=== PATIENT | female | born 1935 | race Caucasian/White ===

== ENCOUNTER 2018-03-14 12:04 | Inpatient (IN) ==
--- NOTE | 2018-03-14 12:34 | ED ---
HPI General Chief Complaint: Fall Stated Complaint: Hip Pain Time Seen by Provider: 03/14/18 12:12 Source: patient Mode of arrival: EMS Limitations: no limitations and physical limitation History of Present Illness HPI Narrative: 83-year-old female presents to the emergency department via EMS after she lost her balance and fell. She said she twisted trying to catch herself and was unable to do so. She has history of recent falls. She is complaining of left hip pain. Has not ambulated since after the fall. She denies paresthesias, loss of sensation to the affected extremity. Says she has not moved the extremity and is refusing to do so because of the pain. She denies hitting her head or loss of consciousness. She is on Eliquis for atrial fibrillation. Denies neck pain or back pain. Denies chest pain, shortness of breath, abdominal pain, nausea, vomiting. Denies syncopal episode. Rates pain 6/10. No treatments tried. No known allergies. History of atrial fibrillation , hypertension, diabetes mellitus type 2, hypercholesterolemia. Has no other medical complaints. No other modifying factors or associated signs and symptoms. Related Data Home Medications Medication Instructions Recorded Confirmed apixaban [Eliquis] 2.5 mg PO BID 03/14/18 03/14/18 losartan 50 mg PO BID 03/14/18 03/14/18 metformin 500 mg PO BID 03/14/18 03/14/18 metoprolol tartrate [Lopressor] 25 mg PO BID 03/14/18 03/14/18 propafenone 150 mg PO Q8H 03/14/18 03/14/18 Allergies Allergy/AdvReac Type Severity Reaction Status Date / Time No Known Allergies Allergy Verified 03/14/18 12:21 Review of Systems ROS: all other systems reviewed are negative PMFSH History History Provided By: Patient Social History Social History Substance History: No History of Abuse Smoking Status: Never smoker How Often Do You Have a Drink Containing Alcohol: Never Recent Travel in [facility] within the Last 8 Weeks: No Recent Out of Country Travel within the Last 8 Weeks: No Exam Narrative Exam Narrative: GENERAL: Well-nourished, well-developed elderly, female patient, in no acute distress; afebrile, nontoxic-appearing SKIN: Warm and dry. HEAD: Atraumatic. Normocephalic. EYES: Pupils equal and round. No scleral icterus. No injection or drainage. ENT: Mucosa pink and moist. Airway patent. NECK: Moving freely. No midline tenderness on palpation of the cervical spine. Active rotation greater than 45 to the left and right. Trachea midline. CARDIOVASCULAR: Regular rate and rhythm. No murmur appreciated. RESPIRATORY: No accessory muscle use. Lungs sounds clear and equal bilaterally. GASTROINTESTINAL: Abdomen soft, non-tender, nondistended. Positive bowel sounds. No hepato-splenomegaly, or palpable masses. No guarding. MUSCULOSKELETAL: Left hip with tenderness to palpation to the lateral aspect; without erythema, edema, ecchymosis; unable to assess range of motion secondary patient refusing and guarding; no obvious deformity; no leg length discrepancy noted. Left lower extremity is supple and non-tense with 2+ pedal pulse and sensory intact and without erythema or edema. BACK: No midline point tenderness on palpation of the thoracic or lumbar spine. NEUROLOGICAL: Awake and alert. Oriented 3. No obvious cranial nerve deficits. Motor grossly within normal limits. Normal speech. PSYCHIATRIC: Appropriate mood and affect; insight and judgment normal. Course Initial Documented Vital Signs Temperature 98.7 F 03/14/18 12:16 Pulse Rate 66 03/14/18 12:16 Respiratory Rate 22 03/14/18 12:16 Blood Pressure 186/88 H 03/14/18 12:16 Last Documented Vital Signs Temperature 98.7 F 03/14/18 12:16 Pulse Rate 66 03/14/18 12:16 Respiratory Rate 22 03/14/18 12:16 Blood Pressure 186/88 H 03/14/18 12:16 Medical Decision Making [facility] Narrative Medical decision making narrative: BMP unremarkable.83-year-old female with left hip pain after mechanical fall. She denies hitting her head or loss of consciousness. Denies neck pain or back pain. She is moving her neck freely and she has no tenderness on palpation of the cervical, thoracic, lumbar spine. No obvious neuro deficits. CBC, BMP, left hip with AP pelvis ordered. After the patient pain medication and she declined. 1410: CBC, coags, BMP unremarkable. 1425: Left hip with AP pelvis x-ray concludes: Nondisplaced impacted left femoral neck fracture. Call placed to orthopedic surgeon, Dr. Callejas. Chest x- ray and EKG ordered for preop orders. 1526: I spoke with Dr. Callejas, orthopedic surgeon, and the patient will be admitted for surgery tomorrow. N.p.o. after midnight. I spoke with SUNITHA Rose and report given for patient admission. Urinalysis ordered. Medical Screen Exam Complete: Yes Emergency Medical Condition: Yes Lab Data Result diagrams: 03/14/18 13:00 03/14/18 13:00 Lab Results 03/14/18 03/14/18 03/14/18 Range/Units 13:00 13:00 13:00 WBC 6.6 (4.0-11.0) th/mm3 RBC 4.39 (4.00-5.30) mil/mm3 Hgb 13.3 (11.6-15.3) gm/dL Hct 39.8 (35.0-46.0) % MCV 90.5 (80.0-100.0) fL MCH 30.3 (27.0-34.0) pg MCHC 33.5 (32.0-36.0) % RDW 13.5 (11.6-17.2) % Plt Count 243 (150-450) th/mm3 MPV 8.1 (7.0-11.0) fL Neut % (Auto) 80.8 H (16.0-70.0) % Lymph % (Auto) 9.5 (9.0-44.0) % [place] % (Auto) 8.2 H (0.0-8.0) % Eos % (Auto) 0.9 (0.0-4.0) % Baso % (Auto) 0.6 (0.0-2.0) % Neut # (Auto) 5.3 (1.8-7.7) th/mm3 Lymph # (Auto) 0.6 L (1.0-4.8) th/mm3 [place] # (Auto) 0.5 (0.0-0.9) th/mm3 Eos # (Auto) 0.1 (0.0-0.4) th/mm3 Baso # (Auto) 0.0 (0.0-0.2) th/mm3 WBC Differential . Differential Comment Auto diff final PT 11.1 (9.8-11.6) sec INR 1.1 Ratio APTT (24.3-30.1) sec Sodium 138 (136-145) meq/L Potassium 4.0 (3.5-5.1) meq/L Chloride 100 (98-107) meq/L Carbon Dioxide 29.3 (21.0-32.0) meq/L Anion Gap 9 (5-15) meq/L BUN 16 (7-18) mg/dL Creatinine 0.75 (0.50-1.00) mg/dL Estimated GFR 73 L (>89) mL/min Random Glucose 128 H (74-106) mg/dL Calcium 8.8 (8.5-10.1) mg/dL 03/14/18 Range/Units 13:00 WBC (4.0-11.0) th/mm3 RBC (4.00-5.30) mil/mm3 Hgb (11.6-15.3) gm/dL Hct (35.0-46.0) % MCV (80.0-100.0) fL MCH (27.0-34.0) pg MCHC (32.0-36.0) % RDW (11.6-17.2) % Plt Count (150-450) th/mm3 MPV (7.0-11.0) fL Neut % (Auto) (16.0-70.0) % Lymph % (Auto) (9.0-44.0) % [place] % (Auto) (0.0-8.0) % Eos % (Auto) (0.0-4.0) % Baso % (Auto) (0.0-2.0) % Neut # (Auto) (1.8-7.7) th/mm3 Lymph # (Auto) (1.0-4.8) th/mm3 [place] # (Auto) (0.0-0.9) th/mm3 Eos # (Auto) (0.0-0.4) th/mm3 Baso # (Auto) (0.0-0.2) th/mm3 WBC Differential Differential Comment PT (9.8-11.6) sec INR Ratio APTT 24.8 (24.3-30.1) sec Sodium (136-145) meq/L Potassium (3.5-5.1) meq/L Chloride (98-107) meq/L Carbon Dioxide (21.0-32.0) meq/L Anion Gap (5-15) meq/L BUN (7-18) mg/dL Creatinine (0.50-1.00) mg/dL Estimated GFR (>89) mL/min Random Glucose (74-106) mg/dL Calcium (8.5-10.1) mg/dL Imaging Data Radiologist's impression: Hip X-Ray 03/14/18 12:21 CONCLUSION: 1. Nondisplaced impacted left femoral neck fracture. Chest X-Ray 03/14/18 14:45 CONCLUSION: 1. No acute abnormality or significant interval change. Discharge Plan Discharge Disposition Patient Disposition: 30 Still Patient Discharge Condition Condition: Stable Discharge Details Diagnosis: Fracture of left hip Physicians Team ED Provider: Marcos Ch ED Midlevel Provider: Sophia May Primary Care Provider: Gisella Hernandez Rxs /Orders / Referrals /Forms Prescriptions: No Action losartan 50 mg Tablet 50 mg PO BID RF: 0 metformin 500 mg Tablet 500 mg PO BID RF: 0 propafenone 150 mg Tablet 150 mg PO Q8H RF: 0 metoprolol tartrate [Lopressor] 50 mg Tablet 25 mg PO BID RF: 0 apixaban [Eliquis] 2.5 mg Tablet 2.5 mg PO BID RF: 0 Status ED Status: With Doctor
[2018-03-14 13:27] LABS: Baso % (Auto) 0.6 % (0.0-2.0); Eos # (Auto) 0.1 th/mm3 (0.0-0.4); Eos % (Auto) 0.9 % (0.0-4.0); Hematocrit 39.8 % (35.0-46.0); Hemoglobin 13.3 gm/dL (11.6-15.3); Lymph # (Auto) 0.6 th/mm3 (1.0-4.8); Lymph % (Auto) 9.5 % (9.0-44.0); Mean Corpuscular HGB Conc 33.5 % (32.0-36.0); Mean Corpuscular Hemoglobin 30.3 pg (27.0-34.0); Mean Corpuscular Volume 90.5 fL (80.0-100.0); Mean Platelet Volume 8.1 fL (7.0-11.0); Mono # (Auto) 0.5 th/mm3 (0.0-0.9); Mono % (Auto) 8.2 % (0.0-8.0); Neut # (Auto) 5.3 th/mm3 (1.8-7.7); Neut % (Auto) 80.8 % (16.0-70.0); Platelet Count 243 th/mm3 (150-450); Red Blood Count 4.39 mil/mm3 (4.00-5.30); Red Cell Distribution Width 13.5 % (11.6-17.2); White Blood Count 6.6 th/mm3 (4.0-11.0)
[2018-03-14 13:43] LABS: INR 1.1 Ratio; Prothrombin Time 11.1 sec (9.8-11.6)
[2018-03-14 14:02] LABS: Calcium 8.8 mg/dL (8.5-10.1); Carbon Dioxide 29.3 meq/L (21.0-32.0)
--- NOTE | 2018-03-14 14:20 | XR ---
EXAM DATE: 03/14/2018 12:21 PM EDT AGE/SEX: 83 years / Female INDICATIONS: Left hip pain due to fall. CLINICAL DATA: This is the patient's initial encounter. Patient reports that signs and symptoms have been present for 1 day and indicates a pain score of 8/10. MEDICAL/SURGICAL HISTORY: Diabetes mellitus type II. Chronic obstructive pulmonary disease. H ypertension. . Appendectomy. Hysterectomy.adhesions COMPARISON: [facility], CT ABDOMEN & PELVIS W CONTRAST, 07/23/2015. . FINDINGS: There is an impacted nondisplaced left femoral neck fracture. Remaining osseous structures are intact . Mild to moderate degenerative changes about the joints bilaterally. Soft tissues are unremarkable. CONCLUSION: 1. Nondisplaced impacted left femoral neck fracture. Electronically signed by: Kirk Oliveira MD 03/14/2018 2:19 PM EDT
--- NOTE | 2018-03-14 15:23 | XR ---
EXAM DATE: 03/14/2018 2:45 PM EDT AGE/SEX: 83 years / Female INDICATIONS: Chest pain due to fall. CLINICAL DATA: This is the patient's subsequent encounter. Patient reports that signs and symptoms h ave been present for 1 day and indicates a pain score of 6/10. MEDICAL/SURGICAL HISTORY: Hypertension. Diabetes mellitus type II. . Hysterectomy. Coronary ar og stent. COMPARISON: [facility], XR CHEST PA AND LAT, 10/23/2015. . FINDINGS: Stable minimal left basilar posterior airspace disease, likely scarring. Stable dual lead pacemaker. The cardiomediastinal contours are unremarkable. Osseous structures are intact. CONCLUSION: 1. No acute abnormality or significant interval change. Electronically signed by: Kirk Oliveira MD 03/14/2018 3:22 PM EDT
[2018-03-14] MEDS ORDERED: Naloxone Inj 0.4 MG/ML Vial IV.PUSH PRN (15:29)
[2018-03-14] MEDS ORDERED: Acetaminophen 325 MG Tablet PO PRN ×2 (15:29→15:30)
[2018-03-14] MEDS ORDERED: oxyCODONE/Acetaminophen 10/325 Tablet PO PRN (15:29)
[2018-03-14] MEDS ORDERED: Morphine Sulfate Inj 2 MG/ML Vial IV.PUSH PRN (15:29)
[2018-03-14] MEDS ORDERED: Morphine Inj 4 MG/ML Vial IV.PUSH PRN (15:29)
[2018-03-14] MEDS ORDERED: Bisacodyl 10 MG Supp RECTAL PRN (15:30)
[2018-03-14] MEDS ORDERED: Dextrose 50% in Water 50 ML Vial IV.PUSH PRN (15:34)
[2018-03-14] MEDS: Sod Chloride 0.9% Inj 1,000 ML IV.CONT SCH (15:53)
[2018-03-14] MEDS: Morphine Inj 4 MG/ML Vial IV.PUSH PRN (16:48)
--- NOTE | 2018-03-14 17:06 | P.HPIM ---
History of Present Illness Service: [facility] Primary Care Physician: Gisella Hernandez Chief Complaint: Fall with left hip pain History of Present Illness: Patient is a 83-year-old female presents the emergency department via EMS after she lost her balance and fell. She states she twisted trying to catch herself was unable to catch herself and therefore she fell. She states she has had a lot of recent falls. She has been complaining of left hip pain. Has not ambulated since the fall. She denies any paresthesias, denies any loss of sensation to the affected extremity. She states she is not move the extremity refusing to do so because of pain denies hitting her head or any loss of consciousness she is on Eliquis for chronic atrial fibrillation. She denies any neck pain or back pain. She denies any chest pain or shortness of breath or abdominal pain or nausea or vomiting. Denies any syncopal episodes prior to this. Denies any treatments tried her pain was at least 6 out of 10. Denies any known allergies. Denies any recent infections but states she did have a urinary tract infection about a month ago. Past medical history significant for atrial fibrillation, hypertension, diabetes mellitus, hypercholesterolemia. Denies anything that is helped the pain other than medications. Inpatient Certification: I certify that the inpatient services were ordered in accordance with Medicare regulations governing the order. This includes certification that hospital inpatient services are reasonable and necessary and in the case of services not specified as inpatient-only under 42 CFR 419.22(n), that they are appropriately provided as inpatient services in accordance to with the 2-midnight benchmark under 43 CFR 412.3(e) Estimated Total Length of Stay (Days): 4 Plans for Post Hospital Care: SNF Review of Systems All other systems reviewed negative except as stated in HPI [facility] - History History Provided By: Patient - Medical History Medical History: Medical History (Last Updated 03/14/18 @ 16:58 by Erasmo Rodgers DO) Chronic anticoagulation Pacemaker Presence of permanent cardiac pacemaker Afib Diabetes Hypercholesteremia Hypertension - Family History Family History: Family History (Last Reviewed 03/14/18 @ 16:59 by Erasmo Rodgers DO) Other Family history of hypertension - Social History I have reviewed the patient's Social History: Yes - Tobacco History Second Hand Smoke Exposure: No Tobacco Use In Past 30 Days: No Smoking Status: Never smoker - Alcohol History How Often Do You Have a Drink Containing Alcohol: Never - Substance Use History Substance History: No History of Abuse - Travel History History of Recent Travel: No Recent Travel in the [place] Within the Last 8 Weeks: No Recent Travel Out of the Country Within the Last 8 Weeks: No - Immunization History Tetanus Immunization: Unsure Medications and Allergies Active Medications: Active Medications Acetaminophen (Tylenol) 650 mg PO Q6H PRN PRN Reason: PAIN SCALE 1 TO 2 Acetaminophen (Tylenol) 650 mg PO Q4H PRN PRN Reason: Temp > 100.4 Al Hydroxide/Mg Hydroxide (Milk Of Magnesia Liq) 30 ml PO Q12H PRN PRN Reason: Mild Constipation Bisacodyl (Dulcolax Supp) 10 mg RECTAL DAILY PRN PRN Reason: SEVERE CONSITIPATION Dextrose (D50w Vial) 50 ml IV.PUSH UNSCH PRN PRN Reason: PER HYPOGLYCEMIA PROTOCOL Glucagon (Glucagon Inj) 1 mg OTHER UNSCH PRN PRN Reason: for Hypoglycemia Protocol Sodium Chloride (Ns Inj) 1,000 mls @ 100 mls/hr IV.CONT .Q10H ARIEL Last Admin: 03/14/18 15:53 Dose: 100 mls/hr Insulin Aspart (Novolog Insulin Correctional Sugar Inj) 0 unit SQ ACHS AND 3AM ARIEL; Protocol Lactulose (Lactulose Liq) 30 ml PO DAILY PRN PRN Reason: SEVERE CONSITIPATION Morphine Sulfate (Morphine Inj) 2 mg IV.PUSH Q3H PRN PRN Reason: PAIN 3-5; IF UABLE TO TAKE PO Morphine Sulfate (Morphine Inj) 4 mg IV.PUSH Q3H PRN PRN Reason: PAIN 6-10;IF UNABLE TO TAKE PO Last Admin: 03/14/18 16:48 Dose: 4 mg Morphine Sulfate (Morphine Inj) 4 mg IV.PUSH Q3H PRN PRN Reason: BREAKTHROUGH PAIN Naloxone HCl (Narcan Inj) 0.4 mg IV.PUSH UNSCH PRN PRN Reason: SEE LABEL COMMENTS Ondansetron HCl (Zofran Inj) 4 mg IV.PUSH Q6H PRN PRN Reason: NAUSEA OR VOMITING Last Admin: 03/14/18 16:49 Dose: 4 mg Oxycodone/Acetaminophen (Percocet 10/325 Mg) 1 tab PO Q6H PRN PRN Reason: PAIN SCALE 6 TO 10 Oxycodone/Acetaminophen (Percocet 5/325 Mg) 1 tab PO Q6H PRN PRN Reason: PAIN SCALE 3 TO 5 Senna/Docusate Sodium (Flavia-Colace) 1 tab PO BID ARIEL Sennosides (Senokot) 17.2 mg PO Q12H PRN PRN Reason: Moderate Constipation Allergies Allergy/AdvReac Type Severity Reaction Status Date / Time No Known Allergies Allergy Verified 03/14/18 12:21 Home Medications Medication Instructions Recorded Confirmed Type apixaban [Eliquis] 2.5 mg PO BID 03/14/18 03/14/18 History losartan 50 mg PO BID 03/14/18 03/14/18 History metformin 500 mg PO BID 03/14/18 03/14/18 History metoprolol tartrate [Lopressor] 25 mg PO BID 03/14/18 03/14/18 History propafenone 150 mg PO Q8H 03/14/18 03/14/18 History Exam Vital signs: Vital Signs 03/14/18 12:16 Temperature 98.7 F Pulse Rate 66 Respiratory Rate 22 Blood Pressure 186/88 H Intake & Output 03/13/18 03/14/18 03/14/18 18:59 06:59 18:59 Output Total 300 / 300 Balance -300 / -300 Weight 55.338 kg Output: Urine 300 / 300 Narrative: GENERAL: Awake alert and oriented x3 talkative and cooperative SKIN: Warm and dry. HEAD: Atraumatic. Normocephalic. EYES: Pupils equal and round. No scleral icterus. No injection or drainage. EOMI ENT: No nasal bleeding or discharge. Mucous membranes pink and moist. Tongue is midline NECK: Trachea midline. No JVD. Supple CARDIOVASCULAR: IRRegular rate and rhythm. S1-S2 no S3 or S4 pacemaker in place in the left-sided chest RESPIRATORY: No accessory muscle use. Clear to auscultation. Breath sounds equal bilaterally. GASTROINTESTINAL: Abdomen soft, non-tender, nondistended. Hepatic and splenic margins not palpable. MUSCULOSKELETAL: Extremities without clubbing, cyanosis, or edema. No obvious deformities. Cannot rotate the left leg without pain left leg with hip tenderness to palpation lateral aspect unable to assess range of motion secondary to refusing and guarding left lower extremity supple good pedal pulses good sensory intact no erythema or edema NEUROLOGICAL: Awake and alert. No obvious cranial nerve deficits. Motor grossly within normal limits. Five out of 5 muscle strength in the arms and and right legs. Normal speech. PSYCHIATRIC: Appropriate mood and affect; insight and judgment normal. Results - Labs CBC & Chem 7: 03/14/18 13:00 03/14/18 13:00 Labs: Short CBC 03/14/18 Range/Units 13:00 WBC 6.6 (4.0-11.0) th/mm3 Hgb 13.3 (11.6-15.3) gm/dL Hct 39.8 (35.0-46.0) % Plt Count 243 (150-450) th/mm3 BMP 03/14/18 13:00 Sodium 138 Potassium 4.0 Chloride 100 Carbon Dioxide 29.3 BUN 16 Creatinine 0.75 Calcium 8.8 - Imaging Impressions Hip X-Ray 03/14/18 12:21 CONCLUSION: 1. Nondisplaced impacted left femoral neck fracture. Chest X-Ray 03/14/18 14:45 CONCLUSION: 1. No acute abnormality or significant interval change. Caprini VTE Risk Assessment Caprini VTE Risk Assessment: Moderate/High Risk (score >= 2) Caprini Risk Assessment Model: Point Value = 1 Point Value = 2 Point Value = 3 Point Value = 5 Age 41-60 Minor surgery BMI > 25 kg/m2 Swollen legs Varicose veins or History of unexplained or recurrent spontaneous Oral contraceptives or hormone replacement Sepsis (< 1 month) Serious lung disease, including pneumonia (< 1 month) Abnormal pulmonary function Acute myocardial infarction Congestive heart failure (< 1 month) History of inflammatory bowel disease Medical patient at bed rest Age 61-74 Arthroscopic surgery Major open surgery (> 45 min) Laparoscopic surgery (> 45 min) Malignancy Confined to bed (> 72 hours) Immobilizing plaster cast Central venous access Age >= 75 History of VTE Family history of VTE Factor V Leiden Prothrombin 92800H Lupus anticoagulant Anticardiolipin antibodies Elevated serum homocysteine Heparin-induced thrombocytopenia Other congenital or acquired thrombophilia Stroke (< 1 month) Elective arthroplasty Hip, pelvis, or leg fracture Acute spinal cord injury (< 1 month) Prophylaxis Regimen: Total Risk Factor Score Risk Level Prophylaxis Regimen 0-1 Low Early ambulation 2 Moderate Order ONE of the following: *Sequential Compression Device (SCD) *Heparin 5000 units SQ BID 3-4 Higher Order ONE of the following medications: *Heparin 5000 units SQ TID *Enoxaparin/Lovenox 40 mg SQ daily (WT < 150 kg, CrCl > 30 mL/min) *Enoxaparin/Lovenox 30 mg SQ daily (WT < 150 kg, CrCl > 10-29 mL/min) *Enoxaparin/Lovenox 30 mg SQ BID (WT < 150 kg, CrCl > 30 mL/min) AND/OR *Sequential Compression Device (SCD) 5 or more Highest Order ONE of the following medications: *Heparin 5000 units SQ TID (Preferred with Epidurals) *Enoxaparin/Lovenox 40 mg SQ daily (WT < 150 kg, CrCl > 30 mL/min) *Enoxaparin/Lovenox 30 mg SQ daily (WT < 150 kg, CrCl > 10-29 mL/min) *Enoxaparin/Lovenox 30 mg SQ BID (WT < 150 kg, CrCl > 30 mL/min) AND *Sequential Compression Device (SCD) Assessment and Plan - Plan Status post fall with left hip intertrochanteric fracture--shows nondisplaced impacted left femoral neck fracture -Dr. Callejas will take to surgery tomorrow -N.p.o. after midnight Pain control DVT prophylaxis per [facility] after surgery diabetes mellitus continue on sliding scale coverage with Accu-Cheks before meals and at bedtime Hold off on the metformin Hypertension resume home medications resume the losartan Atrial fibrillation continue on the PROPAFENONE and Lopressor hold Eliquis hold off on the Eliquis due to need for surgery Chronic anticoagulation will hold off on the Eliquis so patient can have surgery Recent urinary tract infection will check a UA with C&S and if positive start on Rocephin Continue on GI prophylaxis with Pepcid DVT prophylaxis per orthopedic surgery a.m. labs N.p.o. after midnight and hopefully to have surgery tomorrow Code Status: Full code Discussed Condition With: RN and patient and emergency room and family Discharge Planning: Pending surgical repair and need for rehab will more than likely need SNF since she lives alone
[2018-03-14 17:11] LABS: Bilirubin,Urine Negative (Negative); Clarity,Urine Hazy (Clear); Color,Urine Yellow (Yellw/Straw); Glucose,Urine (UA) Negative (Negative); Hyaline Casts,Urine 1 /lpf (0-3); Leukocyte Esterase,Urine Negative (Negative); Mucus,Urine Few /lpf (Occasional); Nitrite,Urine Negative (Negative); Specific Gravity,Urine 1.009 (1.002-1.035); Squamous Epithelial Cell,Urine <1 /hpf (0-5)
[2018-03-14] MEDS: Insulin NovoLOG Aspart Correctional Sugar Inj SQ SCH ×2 (18:08→21:48)
[2018-03-14] MEDS: Senna/Docusate Sodium 8.6/50 MG Tablet PO SCH (21:48)
[2018-03-15] MEDS: Morphine Inj 4 MG/ML Vial IV.PUSH PRN (02:18)
[2018-03-15] MEDS: Sod Chloride 0.9% Inj 1,000 ML IV.CONT SCH ×4 (02:19→21:09)
[2018-03-15] MEDS ORDERED: Metoprolol Tartrate 25 MG Tablet PO ONE (03:04)
[2018-03-15] MEDS ORDERED: Chlorhexidine Gluconate 2% 1 Pack (2 Cloths) TOPICAL ONE (03:04)
[2018-03-15] MEDS: Insulin NovoLOG Aspart Correctional Sugar Inj SQ SCH ×5 (03:16→20:32)
[2018-03-15] MEDS ORDERED: Sodium Chlor 0.9% Inj 500 ML IV.SIG SCH (04:00)
[2018-03-15 05:31] LABS: Baso % (Auto) 0.4 % (0.0-2.0); Eos # (Auto) 0.2 th/mm3 (0.0-0.4); Eos % (Auto) 1.7 % (0.0-4.0); Hematocrit 37.6 % (35.0-46.0); Hemoglobin 12.8 gm/dL (11.6-15.3); Lymph # (Auto) 0.7 th/mm3 (1.0-4.8); Lymph % (Auto) 7.3 % (9.0-44.0); Mean Corpuscular HGB Conc 34.1 % (32.0-36.0); Mean Corpuscular Hemoglobin 30.7 pg (27.0-34.0); Mean Corpuscular Volume 89.9 fL (80.0-100.0); Mean Platelet Volume 7.7 fL (7.0-11.0); Mono # (Auto) 0.6 th/mm3 (0.0-0.9); Mono % (Auto) 6.7 % (0.0-8.0); Neut # (Auto) 7.6 th/mm3 (1.8-7.7); Neut % (Auto) 83.9 % (16.0-70.0); Platelet Count 178 th/mm3 (150-450); Red Blood Count 4.18 mil/mm3 (4.00-5.30); Red Cell Distribution Width 13.7 % (11.6-17.2)
[2018-03-15 06:05] LABS: Alanine Aminotransferase 21 U/L (10-53); Alkaline Phosphatase 82 U/L (45-117); Anion Gap 5 meq/L (5-15); Aspartate Aminotransferase 18 U/L (15-37); Blood Urea Nitrogen 11 mg/dL (7-18); Calcium 7.8 mg/dL (8.5-10.1); Carbon Dioxide 29.7 meq/L (21.0-32.0); Chloride 101 meq/L (98-107); Glomerular Filtration Rate 84 mL/min (>89); Glucose,Random 111 mg/dL (74-106); Potassium 3.5 meq/L (3.5-5.1); Sodium 136 meq/L (136-145); Total Protein 6.5 g/dL (6.4-8.2)
--- NOTE | 2018-03-15 06:33 | P.PNOP ---
Subjective Interval history: s/p fall at home last night left hip pain. no other complaints. hx of pace maker and chronic anticoag. take eliquis. last taken yesterday AM at 10am Physical Exam Vital signs: Vital Signs 03/14/18 12:16 03/14/18 15:30 03/14/18 16:00 Temperature 98.7 F 98.7 F Pulse Rate 66 82 72 Respiratory Rate 22 20 20 Blood Pressure 186/88 H 169/87 H 185/81 H Pulse Oximetry 91 L 03/14/18 17:21 03/14/18 20:00 03/15/18 00:00 Temperature 99.2 F 98.4 F Pulse Rate 90 79 76 Respiratory Rate 20 16 16 Blood Pressure 174/78 H 147/71 H 145/71 H Pulse Oximetry 93 L 94 L Intake & Output 03/14/18 03/14/18 03/15/18 06:59 18:59 06:59 Intake Total 1000 / 1000 Output Total 300 / 300 Balance -300 / -300 1000 / 1000 Weight 58.2 kg Intake: IV 1000 / 1000 NS Inj 1,000 ML @ 100 mls/hr IV 1000 / 1000 .CONT .Q10H ARIEL Rx#:[id number] Output: Urine 300 / 300 Other: Date of Last Bowel Movement 03/11/18 03/11/18 Weight On Admission 58.2 kg Narrative: LLE: pain in hip with motion. nvi distally. no pain at knee or ankle. Results - Labs CBC & Chem 7: 03/15/18 04:51 03/15/18 04:51 Laboratory Results - last 24 hr 03/14/18 03/14/18 03/14/18 13:00 13:00 13:00 WBC 6.6 RBC 4.39 Hgb 13.3 Hct 39.8 MCV 90.5 MCH 30.3 MCHC 33.5 RDW 13.5 Plt Count 243 MPV 8.1 Neut % (Auto) 80.8 H Lymph % (Auto) 9.5 [place] % (Auto) 8.2 H Eos % (Auto) 0.9 Baso % (Auto) 0.6 Neut # (Auto) 5.3 Lymph # (Auto) 0.6 L [place] # (Auto) 0.5 Eos # (Auto) 0.1 Baso # (Auto) 0.0 WBC Differential . Differential Comment Auto diff final PT 11.1 INR 1.1 APTT Sodium 138 Potassium 4.0 Chloride 100 Carbon Dioxide 29.3 Anion Gap 9 BUN 16 Creatinine 0.75 Estimated GFR 73 L POC Glucose Random Glucose 128 H Calcium 8.8 Total Bilirubin AST ALT Alkaline Phosphatase Total Protein Albumin Urine Color Urine Clarity Urine pH Ur Specific [place] Urine Protein Urine Glucose (UA) Urine Ketones Urine Occult Blood Urine Nitrate Urine Bilirubin Urine Urobilinogen Ur Leukocyte Esterase Urine RBC Urine WBC Ur Squamous Epith Cells Hyaline Casts Urine Mucus Ur Microscopic Review Blood Type Blood Type Recheck Antibody Screen 03/14/18 03/14/18 03/14/18 13:00 16:35 17:38 WBC RBC Hgb Hct MCV MCH MCHC RDW Plt Count MPV Neut % (Auto) Lymph % (Auto) [place] % (Auto) Eos % (Auto) Baso % (Auto) Neut # (Auto) Lymph # (Auto) [place] # (Auto) Eos # (Auto) Baso # (Auto) WBC Differential Differential Comment PT INR APTT 24.8 Sodium Potassium Chloride Carbon Dioxide Anion Gap BUN Creatinine Estimated GFR POC Glucose 104 Random Glucose Calcium Total Bilirubin AST ALT Alkaline Phosphatase Total Protein Albumin Urine Color Yellow Urine Clarity Hazy H Urine pH 7.0 Ur Specific [place] 1.009 Urine Protein Negative Urine Glucose (UA) Negative Urine Ketones Negative Urine Occult Blood Negative Urine Nitrate Negative Urine Bilirubin Negative Urine Urobilinogen Less than 2 Ur Leukocyte Esterase Negative Urine RBC Less than 1 Urine WBC Less than 1 Ur Squamous Epith Cells <1 Hyaline Casts 1 Urine Mucus Few H Ur Microscopic Review Not Reportable Blood Type Blood Type Recheck Antibody Screen 03/14/18 03/15/18 03/15/18 20:59 02:41 04:51 WBC 9.0 RBC 4.18 Hgb 12.8 Hct 37.6 MCV 89.9 MCH 30.7 MCHC 34.1 RDW 13.7 Plt Count 178 MPV 7.7 Neut % (Auto) 83.9 H Lymph % (Auto) 7.3 L [place] % (Auto) 6.7 Eos % (Auto) 1.7 Baso % (Auto) 0.4 Neut # (Auto) 7.6 Lymph # (Auto) 0.7 L [place] # (Auto) 0.6 Eos # (Auto) 0.2 Baso # (Auto) 0.0 WBC Differential . Differential Comment Auto diff final PT INR APTT Sodium Potassium Chloride Carbon Dioxide Anion Gap BUN Creatinine Estimated GFR POC Glucose 216 H 91 Random Glucose Calcium Total Bilirubin AST ALT Alkaline Phosphatase Total Protein Albumin Urine Color Urine Clarity Urine pH Ur Specific [place] Urine Protein Urine Glucose (UA) Urine Ketones Urine Occult Blood Urine Nitrate Urine Bilirubin Urine Urobilinogen Ur Leukocyte Esterase Urine RBC Urine WBC Ur Squamous Epith Cells Hyaline Casts Urine Mucus Ur Microscopic Review Blood Type Blood Type Recheck Antibody Screen 03/15/18 03/15/18 04:51 04:51 WBC RBC Hgb Hct MCV MCH MCHC RDW Plt Count MPV Neut % (Auto) Lymph % (Auto) [place] % (Auto) Eos % (Auto) Baso % (Auto) Neut # (Auto) Lymph # (Auto) [place] # (Auto) Eos # (Auto) Baso # (Auto) WBC Differential Differential Comment PT INR APTT Sodium 136 Potassium 3.5 Chloride 101 Carbon Dioxide 29.7 Anion Gap 5 BUN 11 Creatinine 0.67 Estimated GFR 84 L POC Glucose Random Glucose 111 H Calcium 7.8 L D Total Bilirubin 0.9 AST 18 ALT 21 Alkaline Phosphatase 82 Total Protein 6.5 Albumin 3.0 L Urine Color Urine Clarity Urine pH Ur Specific [place] Urine Protein Urine Glucose (UA) Urine Ketones Urine Occult Blood Urine Nitrate Urine Bilirubin Urine Urobilinogen Ur Leukocyte Esterase Urine RBC Urine WBC Ur Squamous Epith Cells Hyaline Casts Urine Mucus Ur Microscopic Review Blood Type A Positive Blood Type Recheck Required Antibody Screen Negative - Imaging Impressions Hip X-Ray 03/14/18 12:21 CONCLUSION: 1. Nondisplaced impacted left femoral neck fracture. Chest X-Ray 03/14/18 14:45 CONCLUSION: 1. No acute abnormality or significant interval change. Assessment and Plan - Assessment and Plan 1) Left Femoral Neck Fx -will need left hip hemiarthroplasty -unfortunately, need to wait on surgery as patient takes eliquis. unsafe to proceed this morning. will plan for tomorrow -hold anticoags -regular diet -npo after MN -sign consents -plan for surgery with Donal tomorrow
[2018-03-15] MEDS: Senna/Docusate Sodium 8.6/50 MG Tablet PO SCH ×2 (08:52→20:40)
--- NOTE | 2018-03-15 12:46 | P.PNIM ---
Subjective Interval history: Patient is a 83-year-old female presents the emergency department via EMS after she lost her balance and fell. She states she twisted trying to catch herself was unable to catch herself and therefore she fell. She states she has had a lot of recent falls. She has been complaining of left hip pain. Has not ambulated since the fall. She denies any paresthesias, denies any loss of sensation to the affected extremity. She states she is not move the extremity refusing to do so because of pain denies hitting her head or any loss of consciousness she is on Eliquis for chronic atrial fibrillation. She denies any neck pain or back pain. She denies any chest pain or shortness of breath or abdominal pain or nausea or vomiting. Denies any syncopal episodes prior to this. Denies any treatments tried her pain was at least 6 out of 10. Denies any known allergies. Denies any recent infections but states she did have a urinary tract infection about a month ago. Past medical history significant for atrial fibrillation, hypertension, diabetes mellitus, hypercholesterolemia. Denies anything that is helped the pain other than medications. 03-15 SURGERY ON HOLD UNTIL TOMORROW DUE TO ELIQUIS BEING TAKEN YESTERDAY DW RN AND PT HOPEFULLY FOR SURGERY TOMORROW AM LABS PAIN CONTROL Physical Exam Vital signs: Vital Signs 03/14/18 15:30 03/14/18 16:00 03/14/18 17:21 Temperature 98.7 F Pulse Rate 82 72 90 Respiratory Rate 20 20 20 Blood Pressure 169/87 H 185/81 H 174/78 H Pulse Oximetry 91 L 03/14/18 20:00 03/15/18 00:00 03/15/18 04:00 Temperature 99.2 F 98.4 F 98.6 F Pulse Rate 79 76 77 Respiratory Rate 16 16 19 Blood Pressure 147/71 H 145/71 H 149/70 H Pulse Oximetry 93 L 94 L 92 L 03/15/18 08:00 03/15/18 10:02 Temperature 98.8 F Pulse Rate 75 Respiratory Rate 16 Blood Pressure 160/72 H Pulse Oximetry 92 L 95 Intake & Output 03/14/18 03/15/18 03/15/18 18:59 06:59 18:59 Intake Total 1720 / 1720 1000 / 1000 Output Total 300 / 300 Balance -300 / -300 1720 / 1720 1000 / 1000 Weight 58.2 kg 61.5 kg Intake: IV 1000 / 1000 1000 / 1000 NS Inj 1,000 ML @ 100 mls/hr IV 1000 / 1000 1000 / 1000 .CONT .Q10H ARIEL Rx#:[id number] Oral 720 / 720 Output: Urine 300 / 300 Other: # Voids 2 Date of Last Bowel Movement 03/11/18 03/11/18 03/11/18 Weight On Admission 58.2 kg Narrative: GENERAL: Awake alert and oriented x3 talkative and cooperative SKIN: Warm and dry. HEAD: Atraumatic. Normocephalic. EYES: Pupils equal and round. No scleral icterus. No injection or drainage. EOMI ENT: No nasal bleeding or discharge. Mucous membranes pink and moist. Tongue is midline NECK: Trachea midline. No JVD. Supple CARDIOVASCULAR: IRRegular rate and rhythm. S1-S2 no S3 or S4 pacemaker in place in the left-sided chest RESPIRATORY: No accessory muscle use. Clear to auscultation. Breath sounds equal bilaterally. GASTROINTESTINAL: Abdomen soft, non-tender, nondistended. Hepatic and splenic margins not palpable. MUSCULOSKELETAL: Extremities without clubbing, cyanosis, or edema. No obvious deformities. Cannot rotate the left leg without pain left leg with hip tenderness to palpation lateral aspect unable to assess range of motion secondary to refusing and guarding left lower extremity supple good pedal pulses good sensory intact no erythema or edema NEUROLOGICAL: Awake and alert. No obvious cranial nerve deficits. Motor grossly within normal limits. Five out of 5 muscle strength in the arms and and right legs. Normal speech. PSYCHIATRIC: Appropriate mood and affect; insight and judgment normal. Results - Labs CBC & Chem 7: 03/15/18 04:51 03/15/18 04:51 Laboratory Results - last 24 hr 03/14/18 03/14/18 03/14/18 13:00 13:00 13:00 WBC 6.6 RBC 4.39 Hgb 13.3 Hct 39.8 MCV 90.5 MCH 30.3 MCHC 33.5 RDW 13.5 Plt Count 243 MPV 8.1 Neut % (Auto) 80.8 H Lymph % (Auto) 9.5 [place] % (Auto) 8.2 H Eos % (Auto) 0.9 Baso % (Auto) 0.6 Neut # (Auto) 5.3 Lymph # (Auto) 0.6 L [place] # (Auto) 0.5 Eos # (Auto) 0.1 Baso # (Auto) 0.0 WBC Differential . Differential Comment Auto diff final PT 11.1 INR 1.1 APTT Sodium 138 Potassium 4.0 Chloride 100 Carbon Dioxide 29.3 Anion Gap 9 BUN 16 Creatinine 0.75 Estimated GFR 73 L POC Glucose Random Glucose 128 H Calcium 8.8 Total Bilirubin AST ALT Alkaline Phosphatase Total Protein Albumin Urine Color Urine Clarity Urine pH Ur Specific [place] Urine Protein Urine Glucose (UA) Urine Ketones Urine Occult Blood Urine Nitrate Urine Bilirubin Urine Urobilinogen Ur Leukocyte Esterase Urine RBC Urine WBC Ur Squamous Epith Cells Hyaline Casts Urine Mucus Ur Microscopic Review Blood Type Blood Type Recheck Antibody Screen 03/14/18 03/14/18 03/14/18 13:00 16:35 17:38 WBC RBC Hgb Hct MCV MCH MCHC RDW Plt Count MPV Neut % (Auto) Lymph % (Auto) [place] % (Auto) Eos % (Auto) Baso % (Auto) Neut # (Auto) Lymph # (Auto) [place] # (Auto) Eos # (Auto) Baso # (Auto) WBC Differential Differential Comment PT INR APTT 24.8 Sodium Potassium Chloride Carbon Dioxide Anion Gap BUN Creatinine Estimated GFR POC Glucose 104 Random Glucose Calcium Total Bilirubin AST ALT Alkaline Phosphatase Total Protein Albumin Urine Color Yellow Urine Clarity Hazy H Urine pH 7.0 Ur Specific [place] 1.009 Urine Protein Negative Urine Glucose (UA) Negative Urine Ketones Negative Urine Occult Blood Negative Urine Nitrate Negative Urine Bilirubin Negative Urine Urobilinogen Less than 2 Ur Leukocyte Esterase Negative Urine RBC Less than 1 Urine WBC Less than 1 Ur Squamous Epith Cells <1 Hyaline Casts 1 Urine Mucus Few H Ur Microscopic Review Not Reportable Blood Type Blood Type Recheck Antibody Screen 03/14/18 03/15/18 03/15/18 20:59 02:41 04:51 WBC 9.0 RBC 4.18 Hgb 12.8 Hct 37.6 MCV 89.9 MCH 30.7 MCHC 34.1 RDW 13.7 Plt Count 178 MPV 7.7 Neut % (Auto) 83.9 H Lymph % (Auto) 7.3 L [place] % (Auto) 6.7 Eos % (Auto) 1.7 Baso % (Auto) 0.4 Neut # (Auto) 7.6 Lymph # (Auto) 0.7 L [place] # (Auto) 0.6 Eos # (Auto) 0.2 Baso # (Auto) 0.0 WBC Differential . Differential Comment Auto diff final PT INR APTT Sodium Potassium Chloride Carbon Dioxide Anion Gap BUN Creatinine Estimated GFR POC Glucose 216 H 91 Random Glucose Calcium Total Bilirubin AST ALT Alkaline Phosphatase Total Protein Albumin Urine Color Urine Clarity Urine pH Ur Specific [place] Urine Protein Urine Glucose (UA) Urine Ketones Urine Occult Blood Urine Nitrate Urine Bilirubin Urine Urobilinogen Ur Leukocyte Esterase Urine RBC Urine WBC Ur Squamous Epith Cells Hyaline Casts Urine Mucus Ur Microscopic Review Blood Type Blood Type Recheck Antibody Screen 03/15/18 03/15/18 03/15/18 04:51 04:51 08:56 WBC RBC Hgb Hct MCV MCH MCHC RDW Plt Count MPV Neut % (Auto) Lymph % (Auto) [place] % (Auto) Eos % (Auto) Baso % (Auto) Neut # (Auto) Lymph # (Auto) [place] # (Auto) Eos # (Auto) Baso # (Auto) WBC Differential Differential Comment PT INR APTT Sodium 136 Potassium 3.5 Chloride 101 Carbon Dioxide 29.7 Anion Gap 5 BUN 11 Creatinine 0.67 Estimated GFR 84 L POC Glucose 135 H Random Glucose 111 H Calcium 7.8 L D Total Bilirubin 0.9 AST 18 ALT 21 Alkaline Phosphatase 82 Total Protein 6.5 Albumin 3.0 L Urine Color Urine Clarity Urine pH Ur Specific [place] Urine Protein Urine Glucose (UA) Urine Ketones Urine Occult Blood Urine Nitrate Urine Bilirubin Urine Urobilinogen Ur Leukocyte Esterase Urine RBC Urine WBC Ur Squamous Epith Cells Hyaline Casts Urine Mucus Ur Microscopic Review Blood Type A Positive Blood Type Recheck Required Antibody Screen Negative 03/15/18 11:48 WBC RBC Hgb Hct MCV MCH MCHC RDW Plt Count MPV Neut % (Auto) Lymph % (Auto) [place] % (Auto) Eos % (Auto) Baso % (Auto) Neut # (Auto) Lymph # (Auto) [place] # (Auto) Eos # (Auto) Baso # (Auto) WBC Differential Differential Comment PT INR APTT Sodium Potassium Chloride Carbon Dioxide Anion Gap BUN Creatinine Estimated GFR POC Glucose 155 H Random Glucose Calcium Total Bilirubin AST ALT Alkaline Phosphatase Total Protein Albumin Urine Color Urine Clarity Urine pH Ur Specific [place] Urine Protein Urine Glucose (UA) Urine Ketones Urine Occult Blood Urine Nitrate Urine Bilirubin Urine Urobilinogen Ur Leukocyte Esterase Urine RBC Urine WBC Ur Squamous Epith Cells Hyaline Casts Urine Mucus Ur Microscopic Review Blood Type Blood Type Recheck Antibody Screen - Imaging Impressions Hip X-Ray 03/14/18 12:21 CONCLUSION: 1. Nondisplaced impacted left femoral neck fracture. Chest X-Ray 03/14/18 14:45 CONCLUSION: 1. No acute abnormality or significant interval change. Assessment and Plan - Plan Status post fall with left hip intertrochanteric fracture--shows nondisplaced impacted left femoral neck fracture -Dr. Callejas will take to surgery tomorrow -N.p.o. after midnight Pain control DVT prophylaxis per [facility] after surgery diabetes mellitus continue on sliding scale coverage with Accu-Cheks before meals and at bedtime Hold off on the metformin Hypertension resume home medications resume the losartan Atrial fibrillation continue on the PROPAFENONE and Lopressor hold Eliquis hold off on the Eliquis due to need for surgery Chronic anticoagulation will hold off on the Eliquis so patient can have surgery Recent urinary tract infection will check a UA with C&S and if positive start on Rocephin Continue on GI prophylaxis with Pepcid DVT prophylaxis per orthopedic surgery a.m. labs N.p.o. after midnight and hopefully to have surgery tomorrow Code Status: FULL CODE Discussed Condition With: RN AND PT AND CM Discharge Planning: Pending surgical repair and need for rehab will more than likely need SNF since she lives alone
--- NOTE | 2018-03-15 22:36 | ECG ---
Date Performed: 03/14/2018 Time Performed: 21:22:01 PTAGE: 83 years EKG: Sinus rhythm WITH FIRST DEGREE AV BLOCK RIGHT BUNDLE BRANCH BLOCK LEFT ANTERIOR FASCICULAR BLOCK ABNORMAL ECG PREVIOUS TRACING : 10/04/2015 05.21 Compared to previous tracing, a fib no longer present DOCTOR: Christy Velazquez Interpretating Date/Time 03/15/2018 22:34:28
[2018-03-16] MEDS: Insulin NovoLOG Aspart Correctional Sugar Inj SQ SCH ×5 (02:24→21:13)
[2018-03-16] MEDS ORDERED: Melatonin 5 MG Tablet PO PRN (04:01)
[2018-03-16 04:47] LABS: Baso # (Auto) 0.1 th/mm3 (0.0-0.2); Baso % (Auto) 0.7 % (0.0-2.0); Eos # (Auto) 0.2 th/mm3 (0.0-0.4); Eos % (Auto) 2.7 % (0.0-4.0); Hematocrit 37.2 % (35.0-46.0); Hemoglobin 12.6 gm/dL (11.6-15.3); Lymph # (Auto) 0.5 th/mm3 (1.0-4.8); Lymph % (Auto) 6.3 % (9.0-44.0); Mean Corpuscular HGB Conc 33.7 % (32.0-36.0); Mean Corpuscular Hemoglobin 30.7 pg (27.0-34.0); Mean Corpuscular Volume 91.1 fL (80.0-100.0); Mean Platelet Volume 7.8 fL (7.0-11.0); Mono # (Auto) 0.7 th/mm3 (0.0-0.9); Neut % (Auto) 82.3 % (16.0-70.0); Platelet Count 162 th/mm3 (150-450); Red Blood Count 4.09 mil/mm3 (4.00-5.30); Red Cell Distribution Width 13.6 % (11.6-17.2); White Blood Count 8.5 th/mm3 (4.0-11.0)
[2018-03-16 05:15] LABS: Albumin 2.6 g/dL (3.4-5.0); Anion Gap 10 meq/L (5-15); Aspartate Aminotransferase 18 U/L (15-37); Blood Urea Nitrogen 7 mg/dL (7-18); Calcium 7.7 mg/dL (8.5-10.1); Carbon Dioxide 25.5 meq/L (21.0-32.0); Chloride 102 meq/L (98-107); Glomerular Filtration Rate Greater Than 89 mL/min (>89); Glucose,Random 111 mg/dL (74-106); Magnesium 1.5 mg/dL (1.5-2.5); Sodium 137 meq/L (136-145)
[2018-03-16 05:16] LABS: Alanine Aminotransferase 15 U/L (10-53); Phosphorus 2.2 mg/dL (2.5-4.9)
[2018-03-16 05:18] LABS: Alkaline Phosphatase 83 U/L (45-117); Total Protein 6.2 g/dL (6.4-8.2)
[2018-03-16] MEDS: Propafenone 150 MG Tablet PO SCH ×3 (05:34→21:11)
[2018-03-16] MEDS: Metoprolol Tartrate 50 MG Tablet PO SCH ×3 (07:44→21:11)
[2018-03-16] MEDS: Sod Chloride 0.9% Inj 1,000 ML IV.CONT SCH ×2 (08:27→19:39)
[2018-03-16] MEDS ORDERED: Magnesium Sulfate Inj 4 GM in Sodium Chlor 0.9% Inj 92 ML IV.SIG ONE (09:02)
[2018-03-16] MEDS ORDERED: Lidocaine PF 1% Inj 5 ML Syringe OTHER ONE (10:15)
[2018-03-16] MEDS ORDERED: Glycopyrrolate Inj 1 MG/5 ML Syringe IV.PUSH ONE (10:15)
[2018-03-16] MEDS ORDERED: Neostigmine Inj 5 MG/5 ML Syringe IV.PUSH ONE (10:15)
[2018-03-16] MEDS ORDERED: SODIUM CHLOR 0.9% IV.SIG SCH (11:00)
[2018-03-16] MEDS ORDERED: TRANEXAMIC ACID IV.SIG SCH (11:00)
[2018-03-16] MEDS ORDERED: Post-op Orders (for Pharmacy) OTHER STA (11:10)
--- NOTE | 2018-03-16 11:16 | P.OP ---
- Preoperative Diagnosis (1) Fracture of left hip Date of procedure: 03/16/18 Procedure: Left hip hemiarthroplasty Anesthesia: GETA Surgeon: Josef Cardona MD Plant Director: NORMA Lafleur PA-C The surgical procedure was assisted by my physician field administrative assistant. My P.A. presence was necessary throughout this case for the manipulation and positioning of the surgical extremity. My P.A. was assisting me throughout the duration of this procedure. The skill set of a physician field administrative assistant was medically necessary to complete this procedure. During the surgical case the ophthalmic surgical assistant was working at the back table and the physician field administrative assistant was directly assisting me. Operation and Findings: PLAN OF ACTIVITY Weight bear as tolerated. IMPLANTS USED IS[employer] [place] size 5 stem with size [46] bipolar head and [+5] neck. DETAILS OF PROCEDURE This patient was brought into the operating room and placed on the OR table. The patient was given anesthesia. The patient received IV antibiotics. The patient was then placed in lateral decubitus position. The hip and leg were prepped with alcohol, followed by Hibiclens and draped in a usual sterile fashion. Clean air was used for this procedure. Time out procedure was performed. The procedure began with a 5 inch incision over the posterolateral hip. The subcutaneous tissue was dissected with the Bovie. The iliotibial band were split in line with fibers. The Charnley retractor was placed. The piriformis and external rotators were released from the femur and tagged with a #1 Vicryl suture. The capsule is now incised and tagged with #1 Vicryl. The femoral neck fracture was now visualized. A corkscrew was now used to remove the femoral head. The femoral head was sized and measured. Soft tissue was now protected. The hip skid was placed underneath the femoral neck. An oscillating saw was used to make a femoral neck cut. At this point attention was turned to preparation of the proximal femur. A box osteotome was used to remove the lateral cortex of the femoral neck. The T- handle reamer was used to open the femoral canal. Next, the canal was sequentially reamed to appropriate size. A lateralizing reamer was used to help lateralize the prosthesis. The proximal femur was now broached. At this point a trial head and neck were placed. The hip was reduced. The patient was found to have excellent stability with good range of motion. Trial components were removed. Soft tissue and bone were thoroughly irrigated. A [place] stem was now opened. The stem was now impacted into the proximal femur. Care was taken to keep appropriate anteversion. The head and neck were now impacted onto the stem. The hip was again reduced. The hip was found to have good range of motion and good stability. Leg lengths were clinically equal. The wound was thoroughly irrigated. The capsule, piriformis and iliotibial band were closed with #1 Vicryl. Subcutaneous tissue was closed with 3-0 Vicryl. The skin was closed with sixto. A sterile dressing was applied with Primapore. The patient was placed into a knee immobilizer. The patient was awakened and transferred to the recovery room in stable condition. Needle and sponge counts were correct.
--- NOTE | 2018-03-16 11:30 | P.CONOP ---
[facility] Orthopedics Consult Note - [facility] Consult date: 03/16/18 Chief complaint: Left Hip Fracture Narrative: Sapna is an 83-year-old female. She lost her balance and fell. She describes a mechanical fall. She had no dizziness, syncope, or loss of consciousness. She did not hit her head. She landed on her left side. She had immediate left hip pain. She was in the emergency room where x-rays revealed a partially displaced left femoral neck fracture. Pain is severe and intense with any motion. Pain is improved with rest. She is on a blood thinner for atrial fibrillation. She also has hypertension and diabetes. Her only complaint is left hip pain. Review of Systems Patient denies fevers, chills, weight loss, headache, visual changes, hearing loss, chest pain, palpitations, shortness of breath, nausea, vomiting, no urinary changes, diarrhea, bowel changes, neck pain, back pain, skin rashes, weakness of extremities, easy bleeding, enlarged lymph nodes, numbness of extremities, anxiety, or depression. Patient's social history, past medical history, and family history were reviewed on chart and with patient. [facility] - History History Provided By: Patient - Medical History Medical History: Medical History (Last Updated 03/16/18 @ 11:27 by Josef Cardona MD) Pacemaker (Acute) Presence of permanent cardiac pacemaker (Acute) Chronic anticoagulation (Acute) Pacemaker (Acute) Hypercholesteremia (Acute) Diabetes (Acute) Hypertension (Acute) Afib (Acute) History of pacemaker - Family History Family History: Family History (Last Reviewed 03/16/18 @ 11:19 by Josef Cardona MD) Other Family history of hypertension - Social History I have reviewed the patient's Social History: Yes - Tobacco History Second Hand Smoke Exposure: No Tobacco Use In Past 30 Days: No Smoking Status: Never smoker - Alcohol History How Often Do You Have a Drink Containing Alcohol: 4 or more times a week - Substance Use History Substance History: No History of Abuse - Travel History History of Recent Travel: No Recent Travel in the [place] Within the Last 8 Weeks: No Recent Travel Out of the Country Within the Last 8 Weeks: No - Immunization History Tetanus Immunization: Unable to Assess Hx Influenza Vaccine This Season: Unable to Assess Medications and Allergies Active Medications: Active Medications Acetaminophen (Tylenol) 650 mg PO Q6H PRN PRN Reason: PAIN SCALE 1 TO 2 Acetaminophen (Tylenol) 650 mg PO Q4H PRN PRN Reason: Temp > 100.4 Al Hydroxide/Mg Hydroxide (Milk Of Magnesia Liq) 30 ml PO Q12H PRN PRN Reason: Mild Constipation Apixaban (Eliquis) 2.5 mg PO BID [facility] Bisacodyl (Dulcolax Supp) 10 mg RECTAL DAILY PRN PRN Reason: SEVERE CONSITIPATION Calcium/Vitamin D (Oscal With D 250/125 Mg) 1 tab PO TID [facility] Dextrose (D50w Vial) 50 ml IV.PUSH UNSCH PRN PRN Reason: PER HYPOGLYCEMIA PROTOCOL Diphenhydramine HCl (Benadryl) 25 mg PO Q6H PRN PRN Reason: ITCHING Ergocalciferol (Vitamin D2) 50,000 unit PO ONCE ONE Stop: 03/16/18 11:11 Glucagon (Glucagon Inj) 1 mg OTHER UNSCH PRN PRN Reason: for Hypoglycemia Protocol Sodium Chloride (Ns Inj) 1,000 mls @ 100 mls/hr IV.CONT .Q10H [facility] Last Admin: 03/16/18 08:27 Dose: 100 mls/hr Sodium Chloride (Ns Inj) 500 mls @ 30 mls/hr IV.SIG .Q10H [facility] Magnesium Sulfate 4 gm/ Sodium (Chloride) 100 mls @ 25 mls/hr IV.SIG ONCE ONE Stop: 03/16/18 13:01 Potassium Chloride (Kcl 10 Meq Premix Inj) 10 meq in 100 mls @ 100 mls/hr IV.SIG Q1H [facility] Stop: 03/16/18 17:14 Tranexamic Acid 922 mg/ Sodium (Chloride) 109.22 mls @ 200 mls/hr IV.SIG ONCE [facility] Stop: 03/17/18 10:59 Cefazolin Sodium 2,000 mg/ (Sodium Chloride) 100 mls @ 200 mls/hr IV.SIG Q8H [facility] Stop: 03/17/18 04:29 Lactated Ringer's (Lr 1000 Ml Inj) 1,000 mls @ 50 mls/hr IV.CONT .Q20H [facility] Insulin Aspart (Novolog Insulin Correctional Sugar Inj) 0 unit SQ ACHS AND 3AM [facility]; Protocol Last Admin: 03/16/18 02:24 Dose: Not Given Lactulose (Lactulose Liq) 30 ml PO DAILY PRN PRN Reason: SEVERE CONSITIPATION Losartan Potassium (Cozaar) 50 mg PO BID [facility] Melatonin (Melatonin) 5 mg PO HS PRN PRN Reason: Insomnia Metoprolol Tartrate (Lopressor) 25 mg PO BID [facility] Last Admin: 03/16/18 08:02 Dose: Not Given Miscellaneous Information (Misc Post-Op Orders (For Pharmacy)) 0 each OTHER STAT STA Stop: 03/16/18 11:11 Morphine Sulfate (Morphine Inj) 2 mg IV.PUSH Q3H PRN PRN Reason: PAIN 3-5; IF UABLE TO TAKE PO Morphine Sulfate (Morphine Inj) 4 mg IV.PUSH Q3H PRN PRN Reason: PAIN 6-10;IF UNABLE TO TAKE PO Last Admin: 03/15/18 02:18 Dose: 4 mg Morphine Sulfate (Morphine Inj) 4 mg IV.PUSH Q3H PRN PRN Reason: BREAKTHROUGH PAIN Naloxone HCl (Narcan Inj) 0.4 mg IV.PUSH UNSCH PRN PRN Reason: SEE LABEL COMMENTS Ondansetron HCl (Zofran Inj) 4 mg IV.PUSH Q6H PRN PRN Reason: NAUSEA OR VOMITING Last Admin: 03/14/18 16:49 Dose: 4 mg Ondansetron HCl (Zofran Odt) 4 mg PO Q6H PRN PRN Reason: NAUSEA OR VOMITING Oxycodone/Acetaminophen (Percocet 10/325 Mg) 1 tab PO Q6H PRN PRN Reason: PAIN SCALE 6 TO 10 Oxycodone/Acetaminophen (Percocet 5/325 Mg) 1 tab PO Q6H PRN PRN Reason: PAIN SCALE 3 TO 5 Last Admin: 03/15/18 20:39 Dose: 1 tab Propafenone HCl (Rythmol) 150 mg PO Q8H [facility] Last Admin: 03/16/18 05:34 Dose: 150 mg Senna/Docusate Sodium (Flavia-Colace) 1 tab PO BID [facility] Last Admin: 03/15/18 20:40 Dose: 1 tab Sennosides (Senokot) 17.2 mg PO Q12H PRN PRN Reason: Moderate Constipation Sodium Chloride (Ns Flush) 2 ml IV.FLUSH BID [facility] Sodium Chloride (Ns Flush) 2 ml IV.FLUSH PRN PRN PRN Reason: FLUSH AFTER USING IV ACCESS Vitamin D (Vitamin D3) 5,000 unit PO DAILY [facility] Allergies Allergy/AdvReac Type Severity Reaction Status Date / Time No Known Allergies Allergy Verified 03/14/18 12:21 Home Medications Medication Instructions Recorded Confirmed Type apixaban [Eliquis] 2.5 mg PO BID 03/14/18 03/14/18 History losartan 50 mg PO BID 03/14/18 03/14/18 History melatonin 5 mg PO HS PRN 03/14/18 03/14/18 History metformin 500 mg PO BID 03/14/18 03/14/18 History metoprolol tartrate [Lopressor] 25 mg PO BID 03/14/18 03/14/18 History propafenone 150 mg PO Q8H 03/14/18 03/14/18 History Exam Vital signs: Vital Signs 03/15/18 12:00 03/15/18 16:00 03/15/18 17:35 Temperature 97.9 F 98.4 F Pulse Rate 62 68 Respiratory Rate 16 18 Blood Pressure 170/76 H 179/82 H 168/82 H Pulse Oximetry 96 97 03/15/18 19:51 03/15/18 20:00 03/15/18 20:15 Temperature 98.5 F Pulse Rate 93 H 96 H Respiratory Rate 16 Blood Pressure 167/79 H Pulse Oximetry 96 98 03/15/18 20:56 03/15/18 22:15 03/15/18 23:17 Temperature Pulse Rate 80 Respiratory Rate 18 17 Blood Pressure Pulse Oximetry 03/16/18 00:00 03/16/18 03:07 03/16/18 04:00 Temperature 97.1 F L 97.0 F L Pulse Rate 78 76 Respiratory Rate 16 17 16 Blood Pressure 128/74 125/72 Pulse Oximetry 96 97 03/16/18 08:00 Temperature 98.4 F Pulse Rate 73 Respiratory Rate 20 Blood Pressure 159/99 H Pulse Oximetry 97 Intake & Output 03/15/18 03/16/18 03/16/18 18:59 06:59 18:59 Intake Total 1720 / 1720 1999 Output Total 900 / 900 Balance 1720 / 1720 1100 / 1100 Intake: IV 1000 / 1000 1999 NS Inj 1,000 ML @ 100 mls/hr IV 1000 / 1000 1999 .CONT .Q10H [facility] Rx#:[id number] Oral 720 / 720 Output: Urine 900 / 900 Other: # Voids 4 Date of Last Bowel Movement 03/11/18 03/11/18 # Bowel Movements 0 Narrative: Sapna is a pleasant 83-year-old female. She complains of left hip pain. General: Awake and alert. No acute distress. Appears well-developed well- nourished Head: Normocephalic, atraumatic pupils are equal Neck: Soft, nontender, trachea midline Abdomen: Soft, nondistended Examination of right arm reveals no pain or deformity with shoulder, elbow, or wrist motion. Skin is intact. Radial pulse is palpable. Normal capillary refill in fingers. Sensation is intact in radial, ulnar, and median nerve distributions. Ceramic Designer strength is +5. No lymphadenopathy noted. Examination of left arm reveals no pain or deformity with shoulder, elbow, or wrist motion. Skin is intact. Radial pulse is palpable. Normal capillary refill in fingers. Sensation is intact in radial, ulnar, and median nerve distributions. Ceramic [employer]er strength is +5. No lymphadenopathy noted. Examination of left lower extremity reveals pain with any movement of her left leg. She has severe pain around her hip. She is tender to palpation of the proximal femur. She has minimal tenderness on her knee, tibia, or ankle. Skin is intact. Sensation is intact in left foot. Dorsalis pedis pulse is palpable. Normal capillary refill and feet. Thigh and calf compartments are soft. No lymphadenopathy noted. +5 strength of ankle dorsiflexion and plantarflexion. Examination of right lower extremity reveals no pain or deformity with hip, knee , or ankle motion. Skin is intact. Sensation is intact in right foot. Dorsalis pedis pulse is palpable. Normal capillary refill and feet. Thigh and calf compartments are soft. No lymphadenopathy noted. +5 strength of ankle dorsiflexion and plantarflexion. Results - Labs Result Diagrams: 03/16/18 04:08 03/16/18 04:08 Labs: Laboratory Results - last 24 hr 03/15/18 03/15/18 03/15/18 11:48 17:28 19:30 WBC RBC Hgb Hct MCV MCH MCHC RDW Plt Count MPV Neut % (Auto) Lymph % (Auto) [place] % (Auto) Eos % (Auto) Baso % (Auto) Neut # (Auto) Lymph # (Auto) [place] # (Auto) Eos # (Auto) Baso # (Auto) WBC Differential Differential Comment Sodium Potassium Chloride Carbon Dioxide Anion Gap BUN Creatinine Estimated GFR POC Glucose 155 H 113 H 123 H Random Glucose Calcium Phosphorus Magnesium Total Bilirubin AST ALT Alkaline Phosphatase Total Protein Albumin 03/16/18 03/16/18 03/16/18 04:08 04:08 08:25 WBC 8.5 RBC 4.09 Hgb 12.6 Hct 37.2 MCV 91.1 MCH 30.7 MCHC 33.7 RDW 13.6 Plt Count 162 MPV 7.8 Neut % (Auto) 82.3 H Lymph % (Auto) 6.3 L [place] % (Auto) 8.0 Eos % (Auto) 2.7 Baso % (Auto) 0.7 Neut # (Auto) 7.0 Lymph # (Auto) 0.5 L [place] # (Auto) 0.7 Eos # (Auto) 0.2 Baso # (Auto) 0.1 WBC Differential . Differential Comment Auto diff final Sodium 137 Potassium 3.0 L Chloride 102 Carbon Dioxide 25.5 Anion Gap 10 BUN 7 Creatinine 0.46 L Estimated GFR Greater than 89 POC Glucose 117 H Random Glucose 111 H Calcium 7.7 L Phosphorus 2.2 L Magnesium 1.5 Total Bilirubin 0.8 AST 18 ALT 15 Alkaline Phosphatase 83 Total Protein 6.2 L Albumin 2.6 L - Diagnostic results Hip x-ray: report reviewed, image reviewed Assessment and Plan - Assessment and Plan Sapna has a partially displaced left femoral neck fracture. Treatment options were discussed in depth with her. She took her blood thinner yesterday. I would recommend postponing surgery until 48 hours from her last dose. The risk and benefits of surgery were discussed in depth with patient. The risk of surgery include bleeding, infection, injuries to arteries, nerves, or blood vessels, infection, wound complications, leg length discrepancy, hip dislocation, trochanteric bursitis, painful hardware, and need for further surgery. I also discussed medical complications including blood clots, pneumonia, stroke, heart attack, and . Informed consent was obtained and all questions were answered. N.p.o.--plan on surgery this morning Calcium and vitamin D supplementation Physical therapy consult Follow-up with Dr. Cardona in 2 weeks [place], Joana Estrella A mid-level provider in my office (nurse practitioner or physician public relations assistant) may see this patient on follow-up visits and continue to implement the objectives of this plan including: Starting or adjusting medications, injections , cast application, orthotics, brace application, physical therapy, radiological studies (including x-ray, MRI, CT, ultrasound, bone scan), vascular studies, neurologic studies, specialist consultation, and proceeding with surgical management, as appropriate.
--- NOTE | 2018-03-16 11:38 | P.PNOP ---
Subjective Interval history: POd 0 s/p left hip hemiarthroplasty stable in PACU Physical Exam Vital signs: Vital Signs 03/15/18 12:00 03/15/18 16:00 03/15/18 17:35 Temperature 97.9 F 98.4 F Pulse Rate 62 68 Respiratory Rate 16 18 Blood Pressure 170/76 H 179/82 H 168/82 H Pulse Oximetry 96 97 03/15/18 19:51 03/15/18 20:00 03/15/18 20:15 Temperature 98.5 F Pulse Rate 93 H 96 H Respiratory Rate 16 Blood Pressure 167/79 H Pulse Oximetry 96 98 03/15/18 20:56 03/15/18 22:15 03/15/18 23:17 Temperature Pulse Rate 80 Respiratory Rate 18 17 Blood Pressure Pulse Oximetry 03/16/18 00:00 03/16/18 03:07 03/16/18 04:00 Temperature 97.1 F L 97.0 F L Pulse Rate 78 76 Respiratory Rate 16 17 16 Blood Pressure 128/74 125/72 Pulse Oximetry 96 97 03/16/18 08:00 Temperature 98.4 F Pulse Rate 73 Respiratory Rate 20 Blood Pressure 159/99 H Pulse Oximetry 97 Intake & Output 03/15/18 03/16/18 03/16/18 18:59 06:59 18:59 Intake Total 1720 / 1720 2000 / 2000 Output Total 900 / 900 Balance 1720 / 1720 1100 / 1100 Intake: IV 1000 / 1000 1999 / 1999 NS Inj 1,000 ML @ 100 mls/hr IV 1000 / 1000 1999 / 1999 .CONT .Q10H [facility] Rx#:[id number] Oral 720 / 720 Output: Urine 900 / 900 Other: # Voids 4 Date of Last Bowel Movement 03/11/18 03/11/18 # Bowel Movements 0 Narrative: LLE: dressing clean and dry. intact. +CKS Results - Labs CBC & Chem 7: 03/16/18 04:08 03/16/18 04:08 Laboratory Results - last 24 hr 03/15/18 03/15/18 03/15/18 11:48 17:28 19:30 WBC RBC Hgb Hct MCV MCH MCHC RDW Plt Count MPV Neut % (Auto) Lymph % (Auto) [place] % (Auto) Eos % (Auto) Baso % (Auto) Neut # (Auto) Lymph # (Auto) [place] # (Auto) Eos # (Auto) Baso # (Auto) WBC Differential Differential Comment Sodium Potassium Chloride Carbon Dioxide Anion Gap BUN Creatinine Estimated GFR POC Glucose 155 H 113 H 123 H Random Glucose Calcium Phosphorus Magnesium Total Bilirubin AST ALT Alkaline Phosphatase Total Protein Albumin 03/16/18 03/16/18 03/16/18 04:08 04:08 08:25 WBC 8.5 RBC 4.09 Hgb 12.6 Hct 37.2 MCV 91.1 MCH 30.7 MCHC 33.7 RDW 13.6 Plt Count 162 MPV 7.8 Neut % (Auto) 82.3 H Lymph % (Auto) 6.3 L [place] % (Auto) 8.0 Eos % (Auto) 2.7 Baso % (Auto) 0.7 Neut # (Auto) 7.0 Lymph # (Auto) 0.5 L [place] # (Auto) 0.7 Eos # (Auto) 0.2 Baso # (Auto) 0.1 WBC Differential . Differential Comment Auto diff final Sodium 137 Potassium 3.0 L Chloride 102 Carbon Dioxide 25.5 Anion Gap 10 BUN 7 Creatinine 0.46 L Estimated GFR Greater than 89 POC Glucose 117 H Random Glucose 111 H Calcium 7.7 L Phosphorus 2.2 L Magnesium 1.5 Total Bilirubin 0.8 AST 18 ALT 15 Alkaline Phosphatase 83 Total Protein 6.2 L Albumin 2.6 L Assessment and Plan - Assessment and Plan 1) Left Femoral Neck Fx s/p Hemiarthroplasty - POD 0 -WBAT -daily dressing changes with primapore beginning POD 2 -CKS while in bed -posterior hip precautions -DVt prophylaxis -CM for DC planning. will likely require SNF. 3008 on chart -Rxs on chart -f/u with Donal or [facility] in 2 weeks
[2018-03-16] MEDS ORDERED: fentaNYL Citrate Inj 100 MCG/2 ML Ampul ONE (11:40)
[2018-03-16] MEDS ORDERED: *morphine SULFATE 4 MG/ML PERIprocedure ONLY ONE (12:17)
--- NOTE | 2018-03-16 12:45 | XR ---
EXAM DATE: 03/16/2018 12:00 AM EDT AGE/SEX: 83 years / Female INDICATIONS: Post op left hip CLINICAL DATA: This is the patient's subsequent encounter. Patient reports that signs and symptoms h ave been present for 1 day and indicates a pain score of Nonresponsive. MEDICAL/SURGICAL HISTORY: . left hip fracture . left hip replaced COMPARISON: [facility] [place] W AP PELVIS 2V, 03/14/2018. . FINDINGS: AP view of the pelvis with 2 views of the left hip demonstrate left hip bipolar arthroplasty hardware in place. Femoral component is noncemented. There is surrounding soft tissue air, as expected. No fr acture is identified. 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 CONCLUSION: Expected changes following recent left hip bipolar arthroplasty. Electronically signed by: Edmond Moore MD 03/16/2018 12:43 PM EDT
[2018-03-16] MEDS: Potassium Chlor 10 mEq Premix 10 MEQ/100 ML PIGGYBACK IV.SIG SCH ×3 (14:14→23:42)
--- NOTE | 2018-03-16 14:22 | P.PNIM ---
Subjective Interval history: Patient is a 83-year-old female presents the emergency department via EMS after she lost her balance and fell. She states she twisted trying to catch herself was unable to catch herself and therefore she fell. She states she has had a lot of recent falls. She has been complaining of left hip pain. Has not ambulated since the fall. She denies any paresthesias, denies any loss of sensation to the affected extremity. She states she is not move the extremity refusing to do so because of pain denies hitting her head or any loss of consciousness she is on Eliquis for chronic atrial fibrillation. She denies any neck pain or back pain. She denies any chest pain or shortness of breath or abdominal pain or nausea or vomiting. Denies any syncopal episodes prior to this. Denies any treatments tried her pain was at least 6 out of 10. Denies any known allergies. Denies any recent infections but states she did have a urinary tract infection about a month ago. Past medical history significant for atrial fibrillation, hypertension, diabetes mellitus, hypercholesterolemia. Denies anything that is helped the pain other than medications. 03-15 SURGERY ON HOLD UNTIL TOMORROW DUE TO ELIQUIS BEING TAKEN YESTERDAY [facility] RN AND PT HOPEFULL[facility] FOR SURGERY TOMORROW AM LABS PAIN CONTROL 03-16 SP LEFT HIP REPAIR BY SURGERY AM LABS PT AND OT WILL NEED SNF [facility] RN AND PT AND FAMILY AND CM Physical Exam Vital signs: Vital Signs 03/15/18 16:00 03/15/18 17:35 03/15/18 19:51 Temperature 98.4 F 98.5 F Pulse Rate 68 93 H Respiratory Rate 18 16 Blood Pressure 179/82 H 168/82 H 167/79 H Pulse Oximetry 97 96 03/15/18 20:00 03/15/18 20:15 03/15/18 20:56 Temperature Pulse Rate 96 H Respiratory Rate 18 Blood Pressure Pulse Oximetry 98 03/15/18 22:15 03/15/18 23:17 03/16/18 00:00 Temperature 97.1 F L Pulse Rate 80 78 Respiratory Rate 17 16 Blood Pressure 128/74 Pulse Oximetry 96 03/16/18 03:07 03/16/18 04:00 03/16/18 08:00 Temperature 97.0 F L 98.4 F Pulse Rate 76 73 Respiratory Rate 17 16 20 Blood Pressure 125/72 159/99 H Pulse Oximetry 97 97 03/16/18 11:33 03/16/18 11:45 03/16/18 12:00 Temperature 97.7 F Pulse Rate 68 68 66 Respiratory Rate 18 18 18 Blood Pressure 163/75 H 165/75 H 168/77 H Pulse Oximetry 95 95 95 03/16/18 12:15 03/16/18 12:33 Temperature 97.8 F Pulse Rate 68 68 Respiratory Rate 18 18 Blood Pressure 163/80 H 163/84 H Pulse Oximetry 95 95 Intake & Output 03/15/18 03/16/18 03/16/18 18:59 06:59 18:59 Intake Total 1720 / 1720 1999 1109.22 / 1109.22 Output Total 900 / 900 50 / 50 Balance 1720 / 1720 1100 / 1100 1059.22 / 1059.22 Intake: IV 1000 / 1000 1999 109.22 / 109.22 NS Inj 1,000 ML @ 100 mls/hr IV 1000 / 1000 1999 .CONT .Q10H [facility] Rx#:[id number] Cyklokapron Inj 922 MG In NS 109.22 / 109.22 Inj 100 ML @ 200 mls/hr IV.SIG ONCE ARIEL Rx#:[id number] Oral 720 / 720 Anesthesia Amount 1000 / 1000 Output: Urine 900 / 900 Estimated Blood Loss 50 / 50 Other: # Voids 4 Date of Last Bowel Movement 03/11/18 03/11/18 # Bowel Movements 0 Narrative: GENERAL: Awake alert and oriented x3 talkative and cooperative SKIN: Warm and dry. HEAD: Atraumatic. Normocephalic. EYES: Pupils equal and round. No scleral icterus. No injection or drainage. EOMI ENT: No nasal bleeding or discharge. Mucous membranes pink and moist. Tongue is midline NECK: Trachea midline. No JVD. Supple CARDIOVASCULAR: IRRegular rate and rhythm. S1-S2 no S3 or S4 pacemaker in place in the left-sided chest RESPIRATORY: No accessory muscle use. Clear to auscultation. Breath sounds equal bilaterally. GASTROINTESTINAL: Abdomen soft, non-tender, nondistended. Hepatic and splenic margins not palpable. MUSCULOSKELETAL: Extremities without clubbing, cyanosis, or edema. No obvious deformities. LEFT HIP DRESSED NEUROLOGICAL: Awake and alert. No obvious cranial nerve deficits. Motor grossly within normal limits. Five out of 5 muscle strength in the arms and and right legs. Normal speech. PSYCHIATRIC: Appropriate mood and affect; insight and judgment normal. Results - Labs CBC & Chem 7: 03/16/18 04:08 03/16/18 04:08 Laboratory Results - last 24 hr 03/15/18 03/15/18 03/16/18 17:28 19:30 04:08 WBC 8.5 RBC 4.09 Hgb 12.6 Hct 37.2 MCV 91.1 MCH 30.7 MCHC 33.7 RDW 13.6 Plt Count 162 MPV 7.8 Neut % (Auto) 82.3 H Lymph % (Auto) 6.3 L [place] % (Auto) 8.0 Eos % (Auto) 2.7 Baso % (Auto) 0.7 Neut # (Auto) 7.0 Lymph # (Auto) 0.5 L [place] # (Auto) 0.7 Eos # (Auto) 0.2 Baso # (Auto) 0.1 WBC Differential . Differential Comment Auto diff final Sodium Potassium Chloride Carbon Dioxide Anion Gap BUN Creatinine Estimated GFR POC Glucose 113 H 123 H Random Glucose Calcium Phosphorus Magnesium Total Bilirubin AST ALT Alkaline Phosphatase Total Protein Albumin 03/16/18 03/16/18 03/16/18 04:08 08:25 12:11 WBC RBC Hgb Hct MCV MCH MCHC RDW Plt Count MPV Neut % (Auto) Lymph % (Auto) [place] % (Auto) Eos % (Auto) Baso % (Auto) Neut # (Auto) Lymph # (Auto) [place] # (Auto) Eos # (Auto) Baso # (Auto) WBC Differential Differential Comment Sodium 137 Potassium 3.0 L Chloride 102 Carbon Dioxide 25.5 Anion Gap 10 BUN 7 Creatinine 0.46 L Estimated GFR Greater than 89 POC Glucose 117 H 139 H Random Glucose 111 H Calcium 7.7 L Phosphorus 2.2 L Magnesium 1.5 Total Bilirubin 0.8 AST 18 ALT 15 Alkaline Phosphatase 83 Total Protein 6.2 L Albumin 2.6 L - Imaging Impressions Hip X-Ray 03/16/18 00:00 CONCLUSION: Expected changes following recent left hip bipolar arthroplasty. - Procedures - Preoperative Diagnosis (1) Fracture of left hip Date of procedure: 03/16/18 Procedure: Left hip hemiarthroplasty Anesthesia: GETA Surgeon: Josef Cardona MD Button Maker And Installer: NORMA Lafleur PA-C The surgical procedure was assisted by my physician personal assistant. My P.A. presence was necessary throughout this case for the manipulation and positioning of the surgical extremity. My P.A. was assisting me throughout the duration of this procedure. The skill set of a physician personal assistant was medically necessary to complete this procedure. During the surgical case the network technical analyst was working at the back table and the physician personal assistant was directly assisting me. Operation and Findings: PLAN OF ACTIVITY Weight bear as tolerated. IMPLANTS USED DePuy Gray size 5 stem with size [46] bipolar head and [+5] neck. DETAILS OF PROCEDURE This patient was brought into the operating room and placed on the OR table. The patient was given anesthesia. The patient received IV antibiotics. The patient was then placed in lateral decubitus position. The hip and leg were prepped with alcohol, followed by Hibiclens and draped in a usual sterile fashion. Clean air was used for this procedure. Time out procedure was performed. The procedure began with a 5 inch incision over the posterolateral hip. The subcutaneous tissue was dissected with the Bovie. The iliotibial band were split in line with fibers. The Charnley retractor was placed. The piriformis and external rotators were released from the femur and tagged with a #1 Vicryl suture. The capsule is now incised and tagged with #1 Vicryl. The femoral neck fracture was now visualized. A corkscrew was now used to remove the femoral head. The femoral head was sized and measured. Soft tissue was now protected. The hip skid was placed underneath the femoral neck. An oscillating saw was used to make a femoral neck cut. At this point attention was turned to preparation of the proximal femur. A box osteotome was used to remove the lateral cortex of the femoral neck. The T- handle reamer was used to open the femoral canal. Next, the canal was sequentially reamed to appropriate size. A lateralizing reamer was used to help lateralize the prosthesis. The proximal femur was now broached. At this point a trial head and neck were placed. The hip was reduced. The patient was found to have excellent stability with good range of motion. Trial components were removed. Soft tissue and bone were thoroughly irrigated. A Gray stem was now opened. The stem was now impacted into the proximal femur. Care was taken to keep appropriate anteversion. The head and neck were now impacted onto the stem. The hip was again reduced. The hip was found to have good range of motion and good stability. Leg lengths were clinically equal. The wound was thoroughly irrigated. The capsule, piriformis and iliotibial band were closed with #1 Vicryl. Subcutaneous tissue was closed with 3-0 Vicryl. The skin was closed with sixto. A sterile dressing was applied with Primapore. The patient was placed into a knee immobilizer. The patient was awakened and transferred to the recovery room in stable condition. Needle and sponge counts were correct. Documented By: Josef Cardona MD Assessment and Plan - Plan Status post fall with left hip intertrochanteric fracture--shows nondisplaced impacted left femoral neck fracture -Dr. Callejas will take to surgery tomorrow -N.p.o. after midnight Pain control DVT prophylaxis per [facility] after surgery SP LEFT HIP REPAIR ON 03-16 diabetes mellitus continue on sliding scale coverage with Accu-Cheks before meals and at bedtime Hold off on the metformin Hypertension resume home medications resume the losartan Atrial fibrillation continue on the PROPAFENONE and Lopressor hold Eliquis hold off on the Eliquis due to need for surgery Chronic anticoagulation will hold off on the Eliquis so patient can have surgery Recent urinary tract infection will check a UA with C&S and if positive start on Rocephin Continue on GI prophylaxis with Pepcid DVT prophylaxis per orthopedic surgery HYPOKALEMIA WILL REPLACE HYPOMAG WILL REPLACE WILL NEED ANTICOAGULATION SOON SURGERY WILL LET HER RESTART ELIQUIS a.m. labs PT AND OT WILL NEED SNF Code Status: FULL CODE Discussed Condition With: RN AND PT AND CM AND FAMILY Discharge Planning: SP SURGICAL REPAIR will need SNF since she lives alone
[2018-03-16] MEDS: Calcium/Vitamin D 250/125 MG Tablet PO SCH ×2 (16:43→21:17)
[2018-03-16] MEDS: Senna/Docusate Sodium 8.6/50 MG Tablet PO SCH ×2 (17:26→21:11)
[2018-03-16] MEDS: ceFAZolin Inj 2,000 MG in Sodium Chlor 0.9% Inj 80 ML IV.SIG SCH (19:39)
[2018-03-16] MEDS: Mag Sulf 1 gm/100 ml Premix 100 ML IV.SIG SCH ×2 (21:20→22:25)
[2018-03-17] MEDS: Potassium Chlor 10 mEq Premix 10 MEQ/100 ML PIGGYBACK IV.SIG SCH ×4 (00:46→06:12)
[2018-03-17] MEDS: Mag Sulf 1 gm/100 ml Premix 100 ML IV.SIG SCH ×2 (01:49→02:57)
[2018-03-17] MEDS: Insulin NovoLOG Aspart Correctional Sugar Inj SQ SCH ×5 (03:01→21:07)
[2018-03-17] MEDS: ceFAZolin Inj 2,000 MG in Sodium Chlor 0.9% Inj 80 ML IV.SIG SCH ×2 (04:21→10:06)
[2018-03-17] MEDS: Propafenone 150 MG Tablet PO SCH ×3 (04:50→20:08)
[2018-03-17] MEDS: Sod Chloride 0.9% Inj 1,000 ML IV.CONT SCH ×2 (05:47→16:04)
[2018-03-17 06:04] LABS: Baso % (Auto) 0.3 % (0.0-2.0); Eos # (Auto) 0.1 th/mm3 (0.0-0.4); Hematocrit 33.4 % (35.0-46.0); Hemoglobin 11.5 gm/dL (11.6-15.3); Lymph # (Auto) 0.4 th/mm3 (1.0-4.8); Lymph % (Auto) 5.2 % (9.0-44.0); Mean Corpuscular HGB Conc 34.5 % (32.0-36.0); Mean Corpuscular Hemoglobin 31.2 pg (27.0-34.0); Mean Corpuscular Volume 90.2 fL (80.0-100.0); Mean Platelet Volume 7.7 fL (7.0-11.0); Mono # (Auto) 0.7 th/mm3 (0.0-0.9); Mono % (Auto) 8.9 % (0.0-8.0); Neut # (Auto) 7.1 th/mm3 (1.8-7.7); Neut % (Auto) 84.6 % (16.0-70.0); Platelet Count 167 th/mm3 (150-450); Red Cell Distribution Width 13.8 % (11.6-17.2); White Blood Count 8.4 th/mm3 (4.0-11.0)
[2018-03-17 06:33] LABS: Albumin 2.3 g/dL (3.4-5.0); Anion Gap 10 meq/L (5-15); Aspartate Aminotransferase 15 U/L (15-37); Blood Urea Nitrogen 10 mg/dL (7-18); Calcium 7.9 mg/dL (8.5-10.1); Carbon Dioxide 24.6 meq/L (21.0-32.0); Chloride 100 meq/L (98-107); Glomerular Filtration Rate 85 mL/min (>89); Glucose,Random 176 mg/dL (74-106); Magnesium 2.6 mg/dL (1.5-2.5); Potassium 3.5 meq/L (3.5-5.1); Sodium 135 meq/L (136-145)
[2018-03-17 06:38] LABS: Alanine Aminotransferase 12 U/L (10-53); Alkaline Phosphatase 68 U/L (45-117); Phosphorus 2.1 mg/dL (2.5-4.9); Total Protein 5.7 g/dL (6.4-8.2)
--- NOTE | 2018-03-17 07:49 | P.PNOP ---
Subjective Interval history: Patient appears comfortable. Lying in bed Physical Exam Vital signs: Vital Signs 03/16/18 08:00 03/16/18 11:33 03/16/18 11:45 Temperature 98.4 F 97.7 F Pulse Rate 73 68 68 Respiratory Rate 20 18 18 Blood Pressure 159/99 H 163/75 H 165/75 H Pulse Oximetry 97 95 95 03/16/18 12:00 03/16/18 12:15 03/16/18 12:33 Temperature 97.8 F Pulse Rate 66 68 68 Respiratory Rate 18 18 18 Blood Pressure 168/77 H 163/80 H 163/84 H Pulse Oximetry 95 95 95 03/16/18 14:00 03/16/18 16:00 03/16/18 18:20 Temperature 97.5 F L 97.3 F L Pulse Rate 75 69 Respiratory Rate 18 20 Blood Pressure 176/84 H 200/90 H 162/72 H Pulse Oximetry 95 95 03/16/18 20:00 03/16/18 20:06 03/16/18 22:49 Temperature 97.4 F L Pulse Rate 74 71 Respiratory Rate 17 17 Blood Pressure 156/74 H Pulse Oximetry 96 03/17/18 00:00 03/17/18 00:06 03/17/18 04:00 Temperature 97.4 F L 98.4 F Pulse Rate 71 64 71 Respiratory Rate 16 17 Blood Pressure 169/79 H 171/85 H Pulse Oximetry 98 93 L 03/17/18 04:04 Temperature Pulse Rate 68 Respiratory Rate Blood Pressure Pulse Oximetry Intake & Output 03/16/18 03/17/18 03/17/18 18:59 06:59 18:59 Intake Total 2309.22 / 2309.22 2900 / 2900 Output Total 350 / 350 425 / 425 Balance 1959.22 / 1959.22 2475 / 2475 Intake: IV 1309.22 / 1309.22 2900 / 2900 LR 1000 mL Inj 1,000 ML @ 50 1000 / 1000 mls/hr IV.CONT .Q20H [facility]EL Rx#: [id number] NS Inj 1,000 ML @ 100 mls/hr IV 1000 / 1000 1000 / 1000 .CONT .Q10H ARIEL Rx#:[id number] Magnesium Sulfate 1 gm/D5W 100 400 / 400 ml Premix 100 ML @ 100 mls/hr IV.SIG Q1H [facility] Rx#:[id number] KCl 10 mEq Premix Inj 10 meq In 200 / 200 300 / 300 100 ml @ 100 mls/hr IV.SIG Q1H [facility] Rx#:[id number] Cyklokapron Inj 922 MG In NS 109.22 / 109.22 Inj 100 ML @ 200 mls/hr IV.SIG ONCE [facility]EL Rx#:[id number] Ancef Inj 2,000 MG In NS Inj 80 200 / 200 ML @ 200 mls/hr IV.SIG Q8H [facility]EL Rx#:[id number] Anesthesia Amount 1000 / 1000 Output: Urine 300 / 300 425 / 425 Estimated Blood Loss 50 / 50 Other: # Incontinent Voids 3 Date of Last Bowel Movement 03/11/18 03/11/18 Narrative: Infiltration of right arm IV appears okay Dressing dry. No abnormal swelling. No calf tenderness. Neuro exam normal. X-ray left hip satisfactory Results - Labs CBC & Chem 7: 03/17/18 05:28 03/17/18 05:28 Laboratory Results - last 24 hr 03/16/18 03/16/18 03/16/18 08:25 12:11 16:43 WBC RBC Hgb Hct MCV MCH MCHC RDW Plt Count MPV Neut % (Auto) Lymph % (Auto) [place] % (Auto) Eos % (Auto) Baso % (Auto) Neut # (Auto) Lymph # (Auto) [place] # (Auto) Eos # (Auto) Baso # (Auto) WBC Differential Differential Comment Sodium Potassium Chloride Carbon Dioxide Anion Gap BUN Creatinine Estimated GFR POC Glucose 117 H 139 H 153 H Random Glucose Calcium Phosphorus Magnesium Total Bilirubin AST ALT Alkaline Phosphatase Total Protein Albumin 03/16/18 03/17/18 03/17/18 19:34 05:28 05:28 WBC 8.4 RBC 3.70 L Hgb 11.5 L Hct 33.4 L MCV 90.2 MCH 31.2 MCHC 34.5 RDW 13.8 Plt Count 167 MPV 7.7 Neut % (Auto) 84.6 H Lymph % (Auto) 5.2 L [place] % (Auto) 8.9 H Eos % (Auto) 1.0 Baso % (Auto) 0.3 Neut # (Auto) 7.1 Lymph # (Auto) 0.4 L [place] # (Auto) 0.7 Eos # (Auto) 0.1 Baso # (Auto) 0.0 WBC Differential . Differential Comment Auto diff final Sodium 135 L Potassium 3.5 Chloride 100 Carbon Dioxide 24.6 Anion Gap 10 BUN 10 Creatinine 0.66 Estimated GFR 85 L POC Glucose 214 H Random Glucose 176 H Calcium 7.9 L Phosphorus 2.1 L Magnesium 2.6 H D Total Bilirubin 0.5 AST 15 ALT 12 Alkaline Phosphatase 68 Total Protein 5.7 L Albumin 2.3 L - Imaging Impressions Hip X-Ray 03/16/18 00:00 CONCLUSION: Expected changes following recent left hip bipolar arthroplasty. - Procedures - Preoperative Diagnosis (1) Fracture of left hip Date of procedure: 03/16/18 Procedure: Left hip hemiarthroplasty Anesthesia: GETA Surgeon: Josef Cardona MD Cras: NORMA Lafleur PA-C The surgical procedure was assisted by my physician physician assistant surgery. My P.A. presence was necessary throughout this case for the manipulation and positioning of the surgical extremity. My P.A. was assisting me throughout the duration of this procedure. The skill set of a physician physician assistant surgery was medically necessary to complete this procedure. During the surgical case the surgical training specialist was working at the back table and the physician physician assistant surgery was directly assisting me. Operation and Findings: PLAN OF ACTIVITY Weight bear as tolerated. IMPLANTS USED DePuy [place] size 5 stem with size [46] bipolar head and [+5] neck. DETAILS OF PROCEDURE This patient was brought into the operating room and placed on the OR table. The patient was given anesthesia. The patient received IV antibiotics. The patient was then placed in lateral decubitus position. The hip and leg were prepped with alcohol, followed by Hibiclens and draped in a usual sterile fashion. Clean air was used for this procedure. Time out procedure was performed. The procedure began with a 5 inch incision over the posterolateral hip. The subcutaneous tissue was dissected with the Bovie. The iliotibial band were split in line with fibers. The Charnley retractor was placed. The piriformis and external rotators were released from the femur and tagged with a #1 Vicryl suture. The capsule is now incised and tagged with #1 Vicryl. The femoral neck fracture was now visualized. A corkscrew was now used to remove the femoral head. The femoral head was sized and measured. Soft tissue was now protected. The hip skid was placed underneath the femoral neck. An oscillating saw was used to make a femoral neck cut. At this point attention was turned to preparation of the proximal femur. A box osteotome was used to remove the lateral cortex of the femoral neck. The T- handle reamer was used to open the femoral canal. Next, the canal was sequentially reamed to appropriate size. A lateralizing reamer was used to help lateralize the prosthesis. The proximal femur was now broached. At this point a trial head and neck were placed. The hip was reduced. The patient was found to have excellent stability with good range of motion. Trial components were removed. Soft tissue and bone were thoroughly irrigated. A De [place]aca stem was now opened. The stem was now impacted into the proximal femur. Care was taken to keep appropriate anteversion. The head and neck were now impacted onto the stem. The hip was again reduced. The hip was found to have good range of motion and good stability. Leg lengths were clinically equal. The wound was thoroughly irrigated. The capsule, piriformis and iliotibial band were closed with #1 Vicryl. Subcutaneous tissue was closed with 3-0 Vicryl. The skin was closed with sixto. A sterile dressing was applied with Primapore. The patient was placed into a knee immobilizer. The patient was awakened and transferred to the recovery room in stable condition. Needle and sponge counts were correct. Documented By: Josef Cardona MD Assessment and Plan - Assessment and Plan 1) Left Femoral Neck Fx s/p Hemiarthroplasty - POD #1 -WBAT -daily dressing changes with primapore beginning POD 2 -CKS while in bed -posterior hip precautions -DVt prophylaxis, Eliquis -CM for DC planning. will likely require SNF. 3008 on chart -Rxs on chart -f/u with [facility] or [facility] in 2 weeks
[2018-03-17] MEDS: Metoprolol Tartrate 50 MG Tablet PO SCH ×2 (08:45→20:08)
[2018-03-17] MEDS: Senna/Docusate Sodium 8.6/50 MG Tablet PO SCH ×2 (08:45→20:08)
[2018-03-17] MEDS: Calcium/Vitamin D 250/125 MG Tablet PO SCH ×3 (08:45→17:02)
--- NOTE | 2018-03-17 12:08 | P.PN ---
Subjective Interval history: Follow-up for left femoral neck fracture following a fall. Patient is currently doing well. Surgical intervention on 03/16/2018. Denies any chest pain, shortness of breath, fever or chills. Physical Exam Vital signs: Vital Signs 03/16/18 12:15 03/16/18 12:33 03/16/18 14:00 Temperature 97.8 F 97.5 F L Pulse Rate 68 68 75 Respiratory Rate 18 18 18 Blood Pressure 163/80 H 163/84 H 176/84 H Pulse Oximetry 95 95 95 03/16/18 16:00 03/16/18 18:20 03/16/18 20:00 Temperature 97.3 F L 97.4 F L Pulse Rate 69 74 Respiratory Rate 20 17 Blood Pressure 200/90 H 162/72 H 156/74 H Pulse Oximetry 95 96 03/16/18 20:06 03/16/18 22:49 03/17/18 00:00 Temperature 97.4 F L Pulse Rate 71 71 Respiratory Rate 17 16 Blood Pressure 169/79 H Pulse Oximetry 98 03/17/18 00:06 03/17/18 04:00 03/17/18 04:04 Temperature 98.4 F Pulse Rate 64 71 68 Respiratory Rate 17 Blood Pressure 171/85 H Pulse Oximetry 93 L 03/17/18 08:00 03/17/18 08:50 03/17/18 09:16 Temperature 97.8 F Pulse Rate 91 H 84 Respiratory Rate 20 18 Blood Pressure 143/85 H Pulse Oximetry 94 L 03/17/18 11:28 Temperature Pulse Rate Respiratory Rate Blood Pressure Pulse Oximetry 96 Intake & Output 03/16/18 03/17/18 03/17/18 18:59 06:59 18:59 Intake Total 2309.22 / 2309.22 2900 / 2900 100 / 100 Output Total 350 / 350 425 / 425 Balance 1959.22 / 1959.22 2475 / 2475 100 / 100 Intake: IV 1309.22 / 1309.22 2900 / 2900 100 / 100 LR 1000 mL Inj 1,000 ML @ 50 1000 / 1000 mls/hr IV.CONT .Q20H ARIEL Rx#: [id number] NS Inj 1,000 ML @ 100 mls/hr IV 1000 / 1000 1000 / 1000 .CONT .Q10H ARIEL Rx#:[id number] Magnesium Sulfate 1 gm/D5W 100 400 / 400 ml Premix 100 ML @ 100 mls/hr IV.SIG Q1H ARIEL Rx#:[id number] KCl 10 mEq Premix Inj 10 meq In 200 / 200 300 / 300 100 ml @ 100 mls/hr IV.SIG Q1H ARIEL Rx#:[id number] Cyklokapron Inj 922 MG In NS 109.22 / 109.22 Inj 100 ML @ 200 mls/hr IV.SIG ONCE ARIEL Rx#:[id number] Ancef Inj 2,000 MG In NS Inj 80 200 / 200 100 / 100 ML @ 200 mls/hr IV.SIG Q8H ARIEL Rx#:[id number] Anesthesia Amount 1000 / 1000 Output: Urine 300 / 300 425 / 425 Estimated Blood Loss 50 / 50 Other: # Incontinent Voids 3 Date of Last Bowel Movement 03/11/18 03/11/18 03/11/18 Narrative: GENERAL: Alert, NAD. SKIN: Warm and dry. HEAD: Normocephalic. EYES: No scleral icterus. No injection or drainage. NECK: Supple, trachea midline. No JVD or lymphadenopathy. CARDIOVASCULAR: Regular rate and rhythm without murmurs, gallops, or rubs. RESPIRATORY: Breath sounds equal bilaterally. No accessory muscle use. GASTROINTESTINAL: Abdomen soft, non-tender, nondistended. MUSCULOSKELETAL: No cyanosis, or edema. Pain on slight movement of left lower ext. BACK: Nontender without obvious deformity. No CVA tenderness. Results - Labs CBC & Chem 7: 03/17/18 05:28 03/17/18 05:28 Laboratory Results - last 24 hr 03/16/18 03/16/18 03/16/18 12:11 16:43 19:34 WBC RBC Hgb Hct MCV MCH MCHC RDW Plt Count MPV Neut % (Auto) Lymph % (Auto) [place] % (Auto) Eos % (Auto) Baso % (Auto) Neut # (Auto) Lymph # (Auto) [place] # (Auto) Eos # (Auto) Baso # (Auto) WBC Differential Differential Comment Sodium Potassium Chloride Carbon Dioxide Anion Gap BUN Creatinine Estimated GFR POC Glucose 139 H 153 H 214 H Random Glucose Calcium Phosphorus Magnesium Total Bilirubin AST ALT Alkaline Phosphatase Total Protein Albumin 03/17/18 03/17/18 03/17/18 05:28 05:28 07:55 WBC 8.4 RBC 3.70 L Hgb 11.5 L Hct 33.4 L MCV 90.2 MCH 31.2 MCHC 34.5 RDW 13.8 Plt Count 167 MPV 7.7 Neut % (Auto) 84.6 H Lymph % (Auto) 5.2 L [place] % (Auto) 8.9 H Eos % (Auto) 1.0 Baso % (Auto) 0.3 Neut # (Auto) 7.1 Lymph # (Auto) 0.4 L [place] # (Auto) 0.7 Eos # (Auto) 0.1 Baso # (Auto) 0.0 WBC Differential . Differential Comment Auto diff final Sodium 135 L Potassium 3.5 Chloride 100 Carbon Dioxide 24.6 Anion Gap 10 BUN 10 Creatinine 0.66 Estimated GFR 85 L POC Glucose 162 H Random Glucose 176 H Calcium 7.9 L Phosphorus 2.1 L Magnesium 2.6 H D Total Bilirubin 0.5 AST 15 ALT 12 Alkaline Phosphatase 68 Total Protein 5.7 L Albumin 2.3 L 03/17/18 11:16 WBC RBC Hgb Hct MCV MCH MCHC RDW Plt Count MPV Neut % (Auto) Lymph % (Auto) [place] % (Auto) Eos % (Auto) Baso % (Auto) Neut # (Auto) Lymph # (Auto) [place] # (Auto) Eos # (Auto) Baso # (Auto) WBC Differential Differential Comment Sodium Potassium Chloride Carbon Dioxide Anion Gap BUN Creatinine Estimated GFR POC Glucose 229 H Random Glucose Calcium Phosphorus Magnesium Total Bilirubin AST ALT Alkaline Phosphatase Total Protein Albumin - Imaging Impressions Hip X-Ray 03/16/18 00:00 CONCLUSION: Expected changes following recent left hip bipolar arthroplasty. - Procedures - Preoperative Diagnosis (1) Fracture of left hip Date of procedure: 03/16/18 Procedure: Left hip hemiarthroplasty Anesthesia: GETA Surgeon: Josef Cardona MD Phlebotomy Services Technician: NORMA Lafleur PA-C The surgical procedure was assisted by my physician news production assistant. My P.A. presence was necessary throughout this case for the manipulation and positioning of the surgical extremity. My P.A. was assisting me throughout the duration of this procedure. The skill set of a physician news production assistant was medically necessary to complete this procedure. During the surgical case the certified surgical first assistant was working at the back table and the physician news production assistant was directly assisting me. Operation and Findings: PLAN OF ACTIVITY Weight bear as tolerated. IMPLANTS USED DePuy [place] size 5 stem with size [46] bipolar head and [+5] neck. DETAILS OF PROCEDURE This patient was brought into the operating room and placed on the OR table. The patient was given anesthesia. The patient received IV antibiotics. The patient was then placed in lateral decubitus position. The hip and leg were prepped with alcohol, followed by Hibiclens and draped in a usual sterile fashion. Clean air was used for this procedure. Time out procedure was performed. The procedure began with a 5 inch incision over the posterolateral hip. The subcutaneous tissue was dissected with the Bovie. The iliotibial band were split in line with fibers. The Charnley retractor was placed. The piriformis and external rotators were released from the femur and tagged with a #1 Vicryl suture. The capsule is now incised and tagged with #1 Vicryl. The femoral neck fracture was now visualized. A corkscrew was now used to remove the femoral head. The femoral head was sized and measured. Soft tissue was now protected. The hip skid was placed underneath the femoral neck. An oscillating saw was used to make a femoral neck cut. At this point attention was turned to preparation of the proximal femur. A box osteotome was used to remove the lateral cortex of the femoral neck. The T- handle reamer was used to open the femoral canal. Next, the canal was sequentially reamed to appropriate size. A lateralizing reamer was used to help lateralize the prosthesis. The proximal femur was now broached. At this point a trial head and neck were placed. The hip was reduced. The patient was found to have excellent stability with good range of motion. Trial components were removed. Soft tissue and bone were thoroughly irrigated. A [place] stem was now opened. The stem was now impacted into the proximal femur. Care was taken to keep appropriate anteversion. The head and neck were now impacted onto the stem. The hip was again reduced. The hip was found to have good range of motion and good stability. Leg lengths were clinically equal. The wound was thoroughly irrigated. The capsule, piriformis and iliotibial band were closed with #1 Vicryl. Subcutaneous tissue was closed with 3-0 Vicryl. The skin was closed with sixto. A sterile dressing was applied with Primapore. The patient was placed into a knee immobilizer. The patient was awakened and transferred to the recovery room in stable condition. Needle and sponge counts were correct. Documented By: Josef Cardona MD Assessment and Plan - Assessment (1) Fracture of left hip Code(s): S72.002A - Fracture of unspecified part of neck of left femur, initial encounter for closed fracture Status: Acute - Plan Patient is a 83-year-old female presents the emergency department via EMS after she lost her balance and fell. She was found to have left hip fracture. Orthopedic surgery evaluated patient and patient underwent left hip hemiarthroplasty on 03/16/2018. Left femoral neck fracture -Status post hemiarthroplasty. -Percocet for pain control. Continue apixaban 2.5 mg twice daily. -Bowel regimen as needed. Hypertension Atrial fibrillation -Continue losartan 50 mg p.o. twice daily, metoprolol 25 mg p.o. twice daily -Continue Apixaban. Continue Propafenone. Diabetes mellitus - Currently on sliding scale insulin. - Will add low dose Levemir 5 units QHS. Titrate as needed. Full code. Apixaban. (1) Fracture of left hip Qualifiers: Encounter type: initial encounter Fracture type: closed Qualified Code(s): S72.002A - Fracture of unspecified part of neck of left femur, initial encounter for closed fracture
[2018-03-17] MEDS ORDERED: Insulin Detemir Inj 1,000 UNIT/10 ML Vial SQ SCH (21:00)
[2018-03-18] MEDS: Sod Chloride 0.9% Inj 1,000 ML IV.CONT SCH (01:53)
[2018-03-18] MEDS: Insulin NovoLOG Aspart Correctional Sugar Inj SQ SCH ×2 (02:51→15:51)
[2018-03-18] MEDS: Propafenone 150 MG Tablet PO SCH ×2 (06:22→12:40)
--- NOTE | 2018-03-18 07:28 | P.PNOP ---
Subjective Interval history: pt very anxious and worried this morning, much different demeanor than when we saw patient yesterday she is worried about recovering from her left hip surgery, worrying about her voiding Physical Exam Vital signs: Vital Signs 03/17/18 08:00 03/17/18 08:50 03/17/18 09:16 Temperature 97.8 F Pulse Rate 91 H 84 Respiratory Rate 20 18 Blood Pressure 143/85 H Pulse Oximetry 94 L 03/17/18 11:28 03/17/18 12:00 03/17/18 16:00 Temperature 97.2 F L 99.1 F Pulse Rate 69 90 Respiratory Rate 20 24 Blood Pressure 98/57 L 131/75 Pulse Oximetry 96 96 94 L 03/17/18 17:26 03/17/18 20:00 03/18/18 00:00 Temperature 98.8 F 98.9 F Pulse Rate 79 91 H Respiratory Rate 18 18 Blood Pressure 118/75 147/86 H Pulse Oximetry 94 L 96 96 03/18/18 04:00 Temperature 98.4 F Pulse Rate 86 Respiratory Rate 18 Blood Pressure 148/50 H Pulse Oximetry 95 Intake & Output 03/17/18 03/18/18 03/18/18 18:59 06:59 18:59 Intake Total 440 / 440 70 / 70 Balance 440 / 440 70 / 70 Weight 66.7 kg Intake: IV 100 / 100 Ancef Inj 2,000 MG In NS Inj 80 100 / 100 ML @ 200 mls/hr IV.SIG Q8H ARIEL Rx#:[id number] Oral 340 / 340 70 / 70 Other: # Voids 4 3 Date of Last Bowel Movement 03/11/18 03/17/18 # Bowel Movements 1 Narrative: resting in bed comfortably left hip dressing dry and intact, ice in place canvas knee splint on left lower extremity no calf tenderness, sensation intact distally Results - Labs CBC & Chem 7: 03/17/18 05:28 03/17/18 05:28 Laboratory Results - last 24 hr 03/17/18 03/17/18 03/17/18 07:55 11:16 16:46 POC Glucose 162 H 229 H 177 H 03/17/18 03/18/18 21:00 02:50 POC Glucose 227 H 136 H - Procedures - Preoperative Diagnosis (1) Fracture of left hip Date of procedure: 03/16/18 Procedure: Left hip hemiarthroplasty Anesthesia: [facility] Surgeon: Josef Cardona MD Precision Machine Operator: NORMA Lafleur PA-C The surgical procedure was assisted by my physician minister assistant. My P.A. presence was necessary throughout this case for the manipulation and positioning of the surgical extremity. My P.A. was assisting me throughout the duration of this procedure. The skill set of a physician minister assistant was medically necessary to complete this procedure. During the surgical case the power technician was working at the back table and the physician minister assistant was directly assisting me. Operation and Findings: PLAN OF ACTIVITY Weight bear as tolerated. IMPLANTS USED Timecrosuy [place] size 5 stem with size [46] bipolar head and [+5] neck. DETAILS OF PROCEDURE This patient was brought into the operating room and placed on the OR table. The patient was given anesthesia. The patient received IV antibiotics. The patient was then placed in lateral decubitus position. The hip and leg were prepped with alcohol, followed by Hibiclens and draped in a usual sterile fashion. Clean air was used for this procedure. Time out procedure was performed. The procedure began with a 5 inch incision over the posterolateral hip. The subcutaneous tissue was dissected with the Bovie. The iliotibial band were split in line with fibers. The Charnley retractor was placed. The piriformis and external rotators were released from the femur and tagged with a #1 Vicryl suture. The capsule is now incised and tagged with #1 Vicryl. The femoral neck fracture was now visualized. A corkscrew was now used to remove the femoral head. The femoral head was sized and measured. Soft tissue was now protected. The hip skid was placed underneath the femoral neck. An oscillating saw was used to make a femoral neck cut. At this point attention was turned to preparation of the proximal femur. A box osteotome was used to remove the lateral cortex of the femoral neck. The T- handle reamer was used to open the femoral canal. Next, the canal was sequentially reamed to appropriate size. A lateralizing reamer was used to help lateralize the prosthesis. The proximal femur was now broached. At this point a trial head and neck were placed. The hip was reduced. The patient was found to have excellent stability with good range of motion. Trial components were removed. Soft tissue and bone were thoroughly irrigated. A [place] stem was now opened. The stem was now impacted into the proximal femur. Care was taken to keep appropriate anteversion. The head and neck were now impacted onto the stem. The hip was again reduced. The hip was found to have good range of motion and good stability. Leg lengths were clinically equal. The wound was thoroughly irrigated. The capsule, piriformis and iliotibial band were closed with #1 Vicryl. Subcutaneous tissue was closed with 3-0 Vicryl. The skin was closed with sixto. A sterile dressing was applied with Primapore. The patient was placed into a knee immobilizer. The patient was awakened and transferred to the recovery room in stable condition. Needle and sponge counts were correct. Documented By: Josef Cardona MD Assessment and Plan - Assessment and Plan 1) Left Femoral Neck Fx s/p Hemiarthroplasty - POD #2 -WBAT -daily dressing changes -CKS while in bed -posterior hip precautions -DVt prophylaxis, Eliquis -patient will require discharge to SNF most likely Monday, lives at home by herself -Rxs on chart -f/u with Donal or [facility] in 2 weeks
[2018-03-18 08:39] VITALS: RESP 16; O2SAT 96
[2018-03-18] MEDS: Metoprolol Tartrate 50 MG Tablet PO SCH (08:43)
[2018-03-18] MEDS: Calcium/Vitamin D 250/125 MG Tablet PO SCH ×2 (08:43→12:40)
[2018-03-18] MEDS: Senna/Docusate Sodium 8.6/50 MG Tablet PO SCH (08:43)
[2018-03-18 12:11] VITALS: BP 153/79; PULSE 78; TEMP 98.6
--- NOTE | 2018-03-18 13:51 | P.PNIM ---
Subjective Interval history: Patient is a 83-year-old female presents the emergency department via EMS after she lost her balance and fell. She states she twisted trying to catch herself was unable to catch herself and therefore she fell. She states she has had a lot of recent falls. She has been complaining of left hip pain. Has not ambulated since the fall. She denies any paresthesias, denies any loss of sensation to the affected extremity. She states she is not move the extremity refusing to do so because of pain denies hitting her head or any loss of consciousness she is on Eliquis for chronic atrial fibrillation. She denies any neck pain or back pain. She denies any chest pain or shortness of breath or abdominal pain or nausea or vomiting. Denies any syncopal episodes prior to this. Denies any treatments tried her pain was at least 6 out of 10. Denies any known allergies. Denies any recent infections but states she did have a urinary tract infection about a month ago. Past medical history significant for atrial fibrillation, hypertension, diabetes mellitus, hypercholesterolemia. Denies anything that is helped the pain other than medications. 03-15 SURGERY ON HOLD UNTIL TOMORROW DUE TO ELIQUIS BEING TAKEN YESTERDAY [facility] RN AND PT HOPEFULLY FOR SURGERY TOMORROW AM LABS PAIN CONTROL 03-16 SP LEFT HIP REPAIR BY SURGERY AM LABS PT AND OT WILL NEED SNF [facility] RN AND PT AND FAMILY AND CM 03-17 Follow-up for left femoral neck fracture following a fall. Patient is currently doing well. Surgical intervention on 03/16/2018. Denies any chest pain, shortness of breath, fever or chills. 03-18 HAD GOOD BM DC TO SNF TODAY SEE [id number] RX WRITTEN RESTART ELIQUIS 2.5MG PO BID Physical Exam Vital signs: Vital Signs 03/17/18 16:00 03/17/18 17:26 03/17/18 20:00 Temperature 99.1 F 98.8 F Pulse Rate 90 79 Respiratory Rate 24 18 Blood Pressure 131/75 118/75 Pulse Oximetry 94 L 94 L 96 03/18/18 00:00 03/18/18 04:00 03/18/18 08:00 Temperature 98.9 F 98.4 F 98.5 F Pulse Rate 91 H 86 86 Respiratory Rate 18 18 16 Blood Pressure 147/86 H 148/50 H 154/76 H Pulse Oximetry 96 95 96 03/18/18 11:07 03/18/18 12:00 Temperature 98.6 F Pulse Rate 78 Respiratory Rate 16 Blood Pressure 153/79 H Pulse Oximetry 96 96 Intake & Output 03/17/18 03/18/18 03/18/18 18:59 06:59 18:59 Intake Total 440 / 440 70 / 70 Balance 440 / 440 70 / 70 Weight 66.7 kg Intake: IV 100 / 100 Ancef Inj 2,000 MG In NS Inj 80 100 / 100 ML @ 200 mls/hr IV.SIG Q8H ARIEL Rx#:[id number] Oral 340 / 340 70 / 70 Other: # Voids 4 3 Date of Last Bowel Movement 03/11/18 03/17/18 03/17/18 # Bowel Movements 1 Narrative: GENERAL: Alert, NAD. SKIN: Warm and dry. HEAD: Normocephalic. EYES: No scleral icterus. No injection or drainage. NECK: Supple, trachea midline. No JVD or lymphadenopathy. CARDIOVASCULAR: Regular rate and rhythm without murmurs, gallops, or rubs. RESPIRATORY: Breath sounds equal bilaterally. No accessory muscle use. GASTROINTESTINAL: Abdomen soft, non-tender, nondistended. MUSCULOSKELETAL: No cyanosis, or edema. Pain on slight movement of left lower ext. BACK: Nontender without obvious deformity. No CVA tenderness. Results - Labs CBC & Chem 7: 03/17/18 05:28 03/17/18 05:28 Laboratory Results - last 24 hr 03/17/18 03/17/18 03/18/18 16:46 21:00 02:50 POC Glucose 177 H 227 H 136 H 03/18/18 11:20 POC Glucose 183 H - Imaging ITS Impressions Chest X-Ray 03/14/18 14:45 CONCLUSION: 1. No acute abnormality or significant interval change. Hip X-Ray 03/16/18 00:00 CONCLUSION: Expected changes following recent left hip bipolar arthroplasty. - Procedures - Preoperative Diagnosis (1) Fracture of left hip Date of procedure: 03/16/18 Procedure: Left hip hemiarthroplasty Anesthesia: GETA Surgeon: Josef Cardona MD [employer] Supervisor: NORMA Lafleur PA-C The surgical procedure was assisted by my physician assistant professor of anthropology. My P.A. presence was necessary throughout this case for the manipulation and positioning of the surgical extremity. My P.A. was assisting me throughout the duration of this procedure. The skill set of a physician assistant professor of anthropology was medically necessary to complete this procedure. During the surgical case the surgical physician assistant was working at the back table and the physician assistant professor of anthropology was directly assisting me. Operation and Findings: PLAN OF ACTIVITY Weight bear as tolerated. IMPLANTS USED DePuy [place] size 5 stem with size [46] bipolar head and [+5] neck. DETAILS OF PROCEDURE This patient was brought into the operating room and placed on the OR table. The patient was given anesthesia. The patient received IV antibiotics. The patient was then placed in lateral decubitus position. The hip and leg were prepped with alcohol, followed by Hibiclens and draped in a usual sterile fashion. Clean air was used for this procedure. Time out procedure was performed. The procedure began with a 5 inch incision over the posterolateral hip. The subcutaneous tissue was dissected with the Bovie. The iliotibial band were split in line with fibers. The Charnley retractor was placed. The piriformis and external rotators were released from the femur and tagged with a #1 Vicryl suture. The capsule is now incised and tagged with #1 Vicryl. The femoral neck fracture was now visualized. A corkscrew was now used to remove the femoral head. The femoral head was sized and measured. Soft tissue was now protected. The hip skid was placed underneath the femoral neck. An oscillating saw was used to make a femoral neck cut. At this point attention was turned to preparation of the proximal femur. A box osteotome was used to remove the lateral cortex of the femoral neck. The T- handle reamer was used to open the femoral canal. Next, the canal was sequentially reamed to appropriate size. A lateralizing reamer was used to help lateralize the prosthesis. The proximal femur was now broached. At this point a trial head and neck were placed. The hip was reduced. The patient was found to have excellent stability with good range of motion. Trial components were removed. Soft tissue and bone were thoroughly irrigated. A [place] stem was now opened. The stem was now impacted into the proximal femur. Care was taken to keep appropriate anteversion. The head and neck were now impacted onto the stem. The hip was again reduced. The hip was found to have good range of motion and good stability. Leg lengths were clinically equal. The wound was thoroughly irrigated. The capsule, piriformis and iliotibial band were closed with #1 Vicryl. Subcutaneous tissue was closed with 3-0 Vicryl. The skin was closed with sixto. A sterile dressing was applied with Primapore. The patient was placed into a knee immobilizer. The patient was awakened and transferred to the recovery room in stable condition. Needle and sponge counts were correct. Documented By: Josef Cardona MD Assessment and Plan - Assessment (1) Fracture of left hip Code(s): S72.002A - Fracture of unspecified part of neck of left femur, initial encounter for closed fracture Status: Acute - Plan Status post fall with left hip intertrochanteric fracture--shows nondisplaced impacted left femoral neck fracture -Dr. Callejas Pain control DVT prophylaxis per Orth[facility] after surgery SP LEFT HIP REPAIR ON 03-16 diabetes mellitus continue on sliding scale coverage with Accu-Cheks before meals and at bedtime Hold off on the metformin Hypertension resume home medications resume the losartan Atrial fibrillation continue on the PROPAFENONE and Lopressor hold Eliquis hold off on the Eliquis due to need for surgery ANTICOAGULATE AGAIN Chronic anticoagulation will hold off on the Eliquis so patient can have surgery ANTICOAGULATE AGAIN Recent urinary tract infection will check a UA with C&S and if positive start on Rocephin Continue on GI prophylaxis with Pepcid DVT prophylaxis per orthopedic surgery HYPOKALEMIA WILL REPLACE HYPOMAG WILL REPLACE a.m. labs PT AND OT WILL NEED SNF Code Status: FULL CODE Discussed Condition With: RN AND PT AND CM Discharge Planning: SP SURGICAL REPAIR will need SNF since she lives alone (1) Fracture of left hip Qualifiers: Encounter type: initial encounter Fracture type: closed Qualified Code(s): S72.002A - Fracture of unspecified part of neck of left femur, initial encounter for closed fracture
--- NOTE | 2018-03-18 13:59 | P.DS ---
Date of admission: 03/14/18 15:29 Primary care physician: Gisella Hernandez Attending physician on discharge: Erasmo Rodgers Anticipated date of discharge: 03/18/18 Brief History from admission: Patient is a 83-year-old female presents the emergency department via EMS after she lost her balance and fell. She states she twisted trying to catch herself was unable to catch herself and therefore she fell. She states she has had a lot of recent falls. She has been complaining of left hip pain. Has not ambulated since the fall. She denies any paresthesias, denies any loss of sensation to the affected extremity. She states she is not move the extremity refusing to do so because of pain denies hitting her head or any loss of consciousness she is on Eliquis for chronic atrial fibrillation. She denies any neck pain or back pain. She denies any chest pain or shortness of breath or abdominal pain or nausea or vomiting. Denies any syncopal episodes prior to this. Denies any treatments tried her pain was at least 6 out of 10. Denies any known allergies. Denies any recent infections but states she did have a urinary tract infection about a month ago. Past medical history significant for atrial fibrillation, hypertension, diabetes mellitus, hypercholesterolemia. Denies anything that is helped the pain other than medications. Patient update on day of discharge: Patient is a 83-year-old female presents the emergency department via EMS after she lost her balance and fell. She states she twisted trying to catch herself was unable to catch herself and therefore she fell. She states she has had a lot of recent falls. She has been complaining of left hip pain. Has not ambulated since the fall. She denies any paresthesias, denies any loss of sensation to the affected extremity. She states she is not move the extremity refusing to do so because of pain denies hitting her head or any loss of consciousness she is on Eliquis for chronic atrial fibrillation. She denies any neck pain or back pain. She denies any chest pain or shortness of breath or abdominal pain or nausea or vomiting. Denies any syncopal episodes prior to this. Denies any treatments tried her pain was at least 6 out of 10. Denies any known allergies. Denies any recent infections but states she did have a urinary tract infection about a month ago. Past medical history significant for atrial fibrillation, hypertension, diabetes mellitus, hypercholesterolemia. Denies anything that is helped the pain other than medications. 03-15 SURGERY ON HOLD UNTIL TOMORROW DUE TO ELIQUIS BEING TAKEN YESTERDAY DW RN AND PT HOPEFULLY FOR SURGERY TOMORROW AM LABS PAIN CONTROL 03-16 SP LEFT HIP REPAIR BY SURGERY AM LABS PT AND OT WILL NEED SNF DW RN AND PT AND FAMILY AND CM 03-17 Follow-up for left femoral neck fracture following a fall. Patient is currently doing well. Surgical intervention on 03/16/2018. Denies any chest pain, shortness of breath, fever or chills. 03-18 HAD GOOD BM DC TO SNF TODAY SEE 3008 RX WRITTEN RESTART ELIQUIS 2.5MG PO BID DS: Diagnosis - Discharge Diagnosis (1) Fracture of left hip Status: Acute (2) History of pacemaker Status: Chronic (3) Pacemaker Status: Chronic (4) Afib Status: Acute (5) Diabetes Status: Chronic (6) Hypercholesteremia Status: Chronic (7) Hypertension Status: Chronic DS: Medications - Discharge Medications Prescriptions: apixaban [Eliquis] 2.5 mg PO BID #60 tab hydrocodone-acetaminophen [[place]] 1 tab PO Q4H #40 tab DS: Summary Hospital Course: Patient is a 83-year-old female presents the emergency department via EMS after she lost her balance and fell. She states she twisted trying to catch herself was unable to catch herself and therefore she fell. She states she has had a lot of recent falls. She has been complaining of left hip pain. Has not ambulated since the fall. She denies any paresthesias, denies any loss of sensation to the affected extremity. She states she is not move the extremity refusing to do so because of pain denies hitting her head or any loss of consciousness she is on Eliquis for chronic atrial fibrillation. She denies any neck pain or back pain. She denies any chest pain or shortness of breath or abdominal pain or nausea or vomiting. Denies any syncopal episodes prior to this. Denies any treatments tried her pain was at least 6 out of 10. Denies any known allergies. Denies any recent infections but states she did have a urinary tract infection about a month ago. Past medical history significant for atrial fibrillation, hypertension, diabetes mellitus, hypercholesterolemia. Denies anything that is helped the pain other than medications. 03-15 SURGERY ON HOLD UNTIL TOMORROW DUE TO ELIQUIS BEING TAKEN YESTERDAY DW RN AND PT HOPEFULLY FOR SURGERY TOMORROW AM LABS PAIN CONTROL 03-16 SP LEFT HIP REPAIR BY SURGERY AM LABS PT AND OT WILL NEED SNF DW RN AND PT AND FAMILY AND CM 03-17 Follow-up for left femoral neck fracture following a fall. Patient is currently doing well. Surgical intervention on 03/16/2018. Denies any chest pain, shortness of breath, fever or chills. 03-18 HAD GOOD BM DC TO SNF TODAY SEE 3008 RX WRITTEN RESTART ELIQUIS 2.5MG PO BID - Time Spent with Patient Total time spent providing and/or coordinating discharge services: Greater than 30 minutes - Quality: VTE Deep Vein Thrombosis/Pulmonary Embolism Present on Admission: No Exam Vital signs: Vital Signs 03/17/18 16:00 03/17/18 17:26 03/17/18 20:00 Temperature 99.1 F 98.8 F Pulse Rate 90 79 Respiratory Rate 24 18 Blood Pressure 131/75 118/75 Pulse Oximetry 94 L 94 L 96 03/18/18 00:00 03/18/18 04:00 03/18/18 08:00 Temperature 98.9 F 98.4 F 98.5 F Pulse Rate 91 H 86 86 Respiratory Rate 18 18 16 Blood Pressure 147/86 H 148/50 H 154/76 H Pulse Oximetry 96 95 96 03/18/18 11:07 03/18/18 12:00 Temperature 98.6 F Pulse Rate 78 Respiratory Rate 16 Blood Pressure 153/79 H Pulse Oximetry 96 96 Intake & Output 03/17/18 03/18/18 03/18/18 18:59 06:59 18:59 Intake Total 440 / 440 70 / 70 Balance 440 / 440 70 / 70 Weight 66.7 kg Intake: IV 100 / 100 Ancef Inj 2,000 MG In NS Inj 80 100 / 100 ML @ 200 mls/hr IV.SIG Q8H ARIEL Rx#:[id number] Oral 340 / 340 70 / 70 Other: # Voids 4 3 Date of Last Bowel Movement 03/11/18 03/17/18 03/17/18 # Bowel Movements 1 Narrative: GENERAL: Alert, NAD. SKIN: Warm and dry. HEAD: Normocephalic. EYES: No scleral icterus. No injection or drainage. NECK: Supple, trachea midline. No JVD or lymphadenopathy. CARDIOVASCULAR: Regular rate and rhythm without murmurs, gallops, or rubs. RESPIRATORY: Breath sounds equal bilaterally. No accessory muscle use. GASTROINTESTINAL: Abdomen soft, non-tender, nondistended. MUSCULOSKELETAL: No cyanosis, or edema. Pain on slight movement of left lower ext. BACK: Nontender without obvious deformity. No CVA tenderness. Results Procedures completed during hospitalization: - Preoperative Diagnosis (1) Fracture of left hip Date of procedure: 03/16/18 Procedure: Left hip hemiarthroplasty Anesthesia: GETA Surgeon: Josef Mansfield MD Floor Installation Mechanic: NORMA Lafleru PA-C The surgical procedure was assisted by my physician medical clerical assistant. My P.A. presence was necessary throughout this case for the manipulation and positioning of the surgical extremity. My P.A. was assisting me throughout the duration of this procedure. The skill set of a physician medical clerical assistant was medically necessary to complete this procedure. During the surgical case the senior nuclear medicine technologist was working at the back table and the physician medical clerical assistant was directly assisting me. Operation and Findings: PLAN OF ACTIVITY Weight bear as tolerated. IMPLANTS USED DePuy [place] size 5 stem with size [46] bipolar head and [+5] neck. DETAILS OF PROCEDURE This patient was brought into the operating room and placed on the OR table. The patient was given anesthesia. The patient received IV antibiotics. The patient was then placed in lateral decubitus position. The hip and leg were prepped with alcohol, followed by Hibiclens and draped in a usual sterile fashion. Clean air was used for this procedure. Time out procedure was performed. The procedure began with a 5 inch incision over the posterolateral hip. The subcutaneous tissue was dissected with the Bovie. The iliotibial band were split in line with fibers. The [place] retractor was placed. The piriformis and external rotators were released from the femur and tagged with a #1 Vicryl suture. The capsule is now incised and tagged with #1 Vicryl. The femoral neck fracture was now visualized. A corkscrew was now used to remove the femoral head. The femoral head was sized and measured. Soft tissue was now protected. The hip skid was placed underneath the femoral neck. An oscillating saw was used to make a femoral neck cut. At this point attention was turned to preparation of the proximal femur. A box osteotome was used to remove the lateral cortex of the femoral neck. The T- handle reamer was used to open the femoral canal. Next, the canal was sequentially reamed to appropriate size. A lateralizing reamer was used to help lateralize the prosthesis. The proximal femur was now broached. At this point a trial head and neck were placed. The hip was reduced. The patient was found to have excellent stability with good range of motion. Trial components were removed. Soft tissue and bone were thoroughly irrigated. A [place] stem was now opened. The stem was now impacted into the proximal femur. Care was taken to keep appropriate anteversion. The head and neck were now impacted onto the stem. The hip was again reduced. The hip was found to have good range of motion and good stability. Leg lengths were clinically equal. The wound was thoroughly irrigated. The capsule, piriformis and iliotibial band were closed with #1 Vicryl. Subcutaneous tissue was closed with 3-0 Vicryl. The skin was closed with sixto. A sterile dressing was applied with Prim[place]. The patient was placed into a knee immobilizer. The patient was awakened and transferred to the recovery room in stable condition. Needle and sponge counts were correct. Documented By: Josef Mansfield MD Completed studies during hospitalization: Laboratory Results WBC 8.4 th/mm3 (4.0-11.0) 03/17/18 05:28 RBC 3.70 mil/mm3 (4.00-5.30) L 03/17/18 05:28 Hgb 11.5 gm/dL (11.6-15.3) L 03/17/18 05:28 Hct 33.4 % (35.0-46.0) L 03/17/18 05:28 MCV 90.2 fL (80.0-100.0) 03/17/18 05:28 MCH 31.2 pg (27.0-34.0) 03/17/18 05:28 MCHC 34.5 % (32.0-36.0) 03/17/18 05:28 RDW 13.8 % (11.6-17.2) 03/17/18 05:28 Plt Count 167 th/mm3 (150-450) 03/17/18 05:28 MPV 7.7 fL (7.0-11.0) 03/17/18 05:28 Neut % (Auto) 84.6 % (16.0-70.0) H 03/17/18 05:28 Lymph % (Auto) 5.2 % (9.0-44.0) L 03/17/18 05:28 [place] % (Auto) 8.9 % (0.0-8.0) H 03/17/18 05:28 Eos % (Auto) 1.0 % (0.0-4.0) 03/17/18 05:28 Baso % (Auto) 0.3 % (0.0-2.0) 03/17/18 05:28 Neut # (Auto) 7.1 th/mm3 (1.8-7.7) 03/17/18 05:28 Lymph # (Auto) 0.4 th/mm3 (1.0-4.8) L 03/17/18 05:28 [place] # (Auto) 0.7 th/mm3 (0.0-0.9) 03/17/18 05:28 Eos # (Auto) 0.1 th/mm3 (0.0-0.4) 03/17/18 05:28 Baso # (Auto) 0.0 th/mm3 (0.0-0.2) 03/17/18 05:28 WBC Differential . 03/17/18 05:28 Differential Comment Auto diff final 03/17/18 05:28 PT 11.1 sec (9.8-11.6) 03/14/18 13:00 INR 1.1 Ratio 03/14/18 13:00 APTT 24.8 sec (24.3-30.1) 03/14/18 13:00 Sodium 135 meq/L (136-145) L 03/17/18 05:28 Potassium 3.5 meq/L (3.5-5.1) 03/17/18 05:28 Chloride 100 meq/L (98-107) 03/17/18 05:28 Carbon Dioxide 24.6 meq/L (21.0-32.0) 03/17/18 05:28 Anion Gap 10 meq/L (5-15) 03/17/18 05:28 BUN 10 mg/dL (7-18) 03/17/18 05:28 Creatinine 0.66 mg/dL (0.50-1.00) 03/17/18 05:28 Estimated GFR 85 mL/min (>89) L 03/17/18 05:28 POC Glucose 183 mg/dl (68-110) H 03/18/18 11:20 Random Glucose 176 mg/dL (74-106) H 03/17/18 05:28 Calcium 7.9 mg/dL (8.5-10.1) L 03/17/18 05:28 Phosphorus 2.1 mg/dL (2.5-4.9) L 03/17/18 05:28 Magnesium 2.6 mg/dL (1.5-2.5) H D 03/17/18 05:28 Total Bilirubin 0.5 mg/dL (0.2-1.0) 03/17/18 05:28 AST 15 U/L (15-37) 03/17/18 05:28 ALT 12 U/L (10-53) 03/17/18 05:28 Alkaline Phosphatase 68 U/L (45-117) 03/17/18 05:28 Total Protein 5.7 g/dL (6.4-8.2) L 03/17/18 05:28 Albumin 2.3 g/dL (3.4-5.0) L 03/17/18 05:28 Urine Color Yellow (Yellw/Straw) 03/14/18 16:35 Urine Clarity Hazy (Clear) H 03/14/18 16:35 Urine pH 7.0 (5.0-8.5) 03/14/18 16:35 Ur Specific [place] 1.009 (1.002-1.035) 03/14/18 16:35 Urine Protein Negative mg/dL (Neg-Trace) 03/14/18 16:35 Urine Glucose (UA) Negative mg/dL (Negative) 03/14/18 16:35 Urine Ketones Negative mg/dL (Negative) 03/14/18 16:35 Urine Occult Blood Negative (Negative) 03/14/18 16:35 Urine Nitrate Negative (Negative) 03/14/18 16:35 Urine Bilirubin Negative (Negative) 03/14/18 16:35 Urine Urobilinogen Less than 2 mg/dL (Less than 2) 03/14/18 16:35 Ur Leukocyte Esterase Negative (Negative) 03/14/18 16:35 Urine RBC Less than 1 /hpf (0-3) 03/14/18 16:35 Urine WBC Less than 1 /hpf (0-5) 03/14/18 16:35 Ur Squamous Epith Cells <1 /hpf (0-5) 03/14/18 16:35 Hyaline Casts 1 /lpf (0-3) 03/14/18 16:35 Urine Mucus Few /lpf (Occasional) H 03/14/18 16:35 Ur Microscopic Review Not Reportable 03/14/18 16:35 Blood Type A Positive 03/15/18 04:51 Blood Type Recheck Required 03/15/18 04:51 Antibody Screen Negative 03/15/18 04:51 Impressions Chest X-Ray 03/14/18 14:45 CONCLUSION: 1. No acute abnormality or significant interval change. Hip X-Ray 03/16/18 00:00 CONCLUSION: Expected changes following recent left hip bipolar arthroplasty. Pending studies at discharge: Pending at discharge 03/16/18 12:38 Surgical [PTH] Routine Labs on day of discharge: Labs from last 24 hours 03/18/18 03/18/18 03/17/18 11:20 02:50 21:00 POC Glucose 183 H 136 H 227 H 03/17/18 16:46 POC Glucose 177 H - Impressions ITS Impressions Chest X-Ray 03/14/18 14:45 CONCLUSION: 1. No acute abnormality or significant interval change. Hip X-Ray 03/16/18 00:00 CONCLUSION: Expected changes following recent left hip bipolar arthroplasty. Discharge Plan - Discharge Disposition Patient Disposition: 03 Discharge to SNF - Discharge Condition Condition: Stable - Discharge Order Discharge Orders: Discharge Order (Routine); Ordered 03/18/18 Ordered By: Erasmo Rodgers - Discharge Details Anticipated Discharge Date: 03/18/18 Discharge Comment: DC TO SNF - Physicians Team Primary Care Provider: Gisella Hernandez Attending Provider: Erasmo Rodgers Other Providers: David Callejas MD ; School Admissions,Insurance ; Josef Mansfield MD ; [facility],[place]
== END 2018-03-18 17:34 ==
LOC: NEPD 12:04 → NEDA 15:29 → N06 17:08
PROVIDERS: ADMIT Hospitalist; ATTEND Hospitalist